=== PATIENT | female | born 1940 | race Caucasian/White ===

== ENCOUNTER → 2016-07-30 | Outpatient (CLI) | payer OTHER ==
[~2016-07-30] MED LIST: BIOT1CAP8 PO; BRIM0.15 OPB; CALC1TAB62 PO; CALC8.5C; CHOL100040; CIPR-255 PO; DORZ1SOL OPB; IBUP-1277 PO; LATA0.009 OPB
--- NOTE | 2016-07-30 14:32 | MAMMOGRAPHY REPORT ---
BILATERAL DIGITAL SCREENING MAMMOGRAM WITH CAD: 07/30/2016 CLINICAL HISTORY: Routine screening. Patient has no complaints. TECHNIQUE: Current study was also evaluated with a Computer Aided Detection (CAD) system. Bilatera l CC and MLO views were obtained. COMPARISON: Comparison is made to exams dated: 07/25/2015 mammogram, 07/19/2014 mammogram, 07/18/2013 ma mmogram, 07/17/2012 mammogram, and 01/20/2012 mammogram - [facility]. BREAST COMPOSITION: There are scattered areas of fibroglandular density in both breasts. FINDINGS: No suspicious masses, calcifications, or areas of architectural distortion are noted in e ither breast. There has been no significant interval change compared to prior exams. IMPRESSION: ACR BI-RADS CATEGORY 1: NEGATIVE There is no mammographic evidence of malignancy. A 1 year screening mammogram is recommended. The p atient will receive written notification of the results. Approximately 10% of breast cancers are not detected with mammography. A negative mammographic repor t should not delay biopsy if a clinically suggestive mass is present. Marta Robles M.D. ah/:07/30/2016 12:05:49 Crtts: aBrbara Hernandez RT(R)(M), [facility] letter sent: Normal 1/2 BI-RADS Code: ACR BI-RADS Category 1: Negative
== END | disposition home or self-care (01) ==
LOC: C.MAMM 09:48
PROVIDERS: ATTEND Internal Medicine Geriatric Medicine
DX: Z12.31 Encounter for screening mammogram for malignant neoplasm of breast (principal)

== ENCOUNTER → 2016-09-27 | Day surgery (SDC) | payer OTHER ==
[~2016-09-27] VITALS: Ht 154.9 cm; Wt 72.7 kg
[~2016-09-27] MED LIST changes: -CHOL100040; -CIPR-255 PO; -IBUP-1277 PO; +LIDOCAINE HCL 2% 2 ML VIAL (20MG/ML) ONE; +PROPOFOL IV EMULSION 10 MG/ML 20 ML VIAL IV ONE
[2016-09-27 09:55] VITALS: Ht 154.9 cm; Wt 72.7 kg
--- NOTE | 2016-09-27 10:05 | Endo History and Physical ---
History & Physical Date of Service: September 27, 2016. Chief Complaint: SCREENING FOR COLON CANCER Referring Physician: DR CHARLOTTE SAMPSON History of Present Illness 76 yo CF who presents for screening colonoscopy. Past Surgical History Hx Cardiac Surgery: No Hx Internal Defibrillator: No Hx Pacemaker: No Hx Abdominal Surgery: Yes (OVARIAN CYST REMOVAL, RAFAT, CARMEN) Hx of Implantable Prosthesis: No Hx Post-Op Nausea and Vomiting: No Hx Cancer Surgery: No Hx Thoracic Surgery: No Hx Orthopedic: Yes Hx Urinary Tract Surgery: Yes (CYSTOCELE/RECTOCELE REPAIR) Family History None Social History Smoking Status: Never Smoker Hx Substance Use: No Hx Alcohol Use: No Allergies Coded Allergies: Simvastatin (Verified Allergy, Severe, LEG CRAMPS, 09/27/16) Uncoded Allergies: DARVOCET (Allergy, Unknown, SICK IN STOMACH/DIZZY, 09/20/16) Current Medications Reported Home Medications Medications Dose Route/Sig Max Daily Dose Days Date Category Biotin 1 Mg Cap 1 Cap PO Q2D 09/20/16 Reported Calcium (Calcium & Phosphorus W/ Vitami) 1 Tab Tab 2,000 Mg PO QAM 09/20/16 Reported Viactiv (Calcium W/ Vitamins D & K) 1 Chw Chw 1 QAM 08/09/13 Reported Xalatan 0.005% Oph (Latanoprost) Soln 1 Drop OPB QPM 08/09/13 Reported Trusopt Oph (Dorzolamide HCl) Soln 1 Drop OPB BID 08/09/13 Reported Alphagan P Oph (Brimonidine Tartrate) 0.15 % Eli 1 Drop OPB BID 08/09/13 Reported Vital Signs Weight (Kilograms): 72.73 Height (Feet): 5 Height (Inches): 1 Date Time Temp Pulse Resp B/P Pulse Ox O2 Delivery O2 Flow Rate FiO2 09/27/16 09:54 36.5 82 16 148/85 98 Room Air Physical Exam General Appearance: WD/WN, no apparent distress Respiratory/Chest: Auscultation: breath sounds normal Cardiovascular: Heart Auscultation: RRR Abdomen: Bowel Sounds: normal Inspection & Palpation: soft, non-distended, no tenderness, guarding & rebound Assessment and Plan Assessment: 76 yo CF who presents for screening colonoscopy. Plan: Proceed with colonoscopy.
--- NOTE | 2016-09-27 11:03 | Discharge Instructions ---
Endoscopy Patient Instructions Date / Procedure(s) Performed September 27, 2016. Colonoscopy Allergy Information Coded Allergies: Simvastatin (Verified Allergy, Severe, LEG CRAMPS, 09/27/16) Uncoded Allergies: DARVOCET (Allergy, Unknown, SICK IN STOMACH/DIZZY, 09/20/16) Discharge Date / Findings September 27, 2016. Diverticulosis Internal hemorrhoids Medication Instructions OK to resume all medications today as prescribed Reported Home Medications Medications Dose Route/Sig Max Daily Dose Days Date Category Biotin 1 Mg Cap 1 Cap PO Q2D 09/20/16 Reported Calcium (Calcium & Phosphorus W/ Vitami) 1 Tab Tab 2,000 Mg PO QAM 09/20/16 Reported Viactiv (Calcium W/ Vitamins D & K) 1 Chw Chw 1 QAM 08/09/13 Reported Xalatan 0.005% Oph (Latanoprost) Soln 1 Drop OPB QPM 08/09/13 Reported Trusopt Oph (Dorzolamide HCl) Soln 1 Drop OPB BID 08/09/13 Reported Alphagan P Oph (Brimonidine Tartrate) 0.15 % Eli 1 Drop OPB BID 08/09/13 Reported Provider Instructions Activity Restrictions - No exercising or heavy lifting for 24 hours. - Do not drink alcohol the day of the procedure. - Do not drive a car or operate machinery until the day after the procedure. - Do not make any important decisions or sign important papers in 24 hours after the procedure. Following Day: - Return to full activity which may include returning to work/school. Diet Start your diet with liquids and light foods (jello, soup, juice, toast). Then eat your usual diet if not nauseated. Treatment For Common After Affects For mild abdominal pain, bloating, or excessive gas: - Rest - Eat lightly - Lie on right side Follow-Up Information Follow-up with DR CHARLOTTE SAMPSON as scheduled Anesthesia Information What You Should Know You have had a procedure that required some medicine to reduce anxiety and discomfort. This treatment is called moderate sedation. After receiving the treatment, you may be sleepy, but you will be able to breathe on your own. The effects of the treatment may last for several hours. Follow these instructions along with Activity/Diet recommendations noted above: * Do NOT do anything where dizziness or clumsiness would be dangerous. * Rest quietly at home today, then you can be up and about tomorrow. * Have a responsible person stay with you the rest of today. * You may have had an I.V. today. If so, you may take the dressing off later today. Recommendations Call your doctor if: * Trouble breathing * Continuous vomiting for more than 24 hours * Temperature above 101 degrees * Severe abdominal pain or bloating * Pain not relieved by pain medicine ordered * There is increased drainage or redness from any incision * A large amount of rectal bleeding greater than 2-3 tablespoons. (If you had a polyp/s removed or have hemorrhoids, a small amount of blood - from the rectum is to be expected.) * You have any unanswered questions or concerns. IN THE EVENT OF A SERIOUS EMERGENCY, GO TO THE NEAREST EMERGENCY ROOM Your discharge instructions were prepared by provider Samuel Lundberg. Patient Instructions Signature Page Shweta Soni Patient (or Guardian) Signature/Date: I have read and understand the instructions given to me by my caregivers. Caregiver/RN/Doctor Signature/Date: The above-named patient and/or guardian has received patient instructions on this date. + Original Patient Signature Page (only) stays with chart. Please make copy for patient.
--- NOTE | 2016-09-27 11:03 | GI REPORT ---
Procedure Date: 09/27/2016 10:22 AM Procedure: Colonoscopy Indications: Screening for colorectal malignant neoplasm Medicines: Monitored Anesthesia Care Complications: No immediate complications. Estimated Blood Loss: Estimated blood loss: none. Procedure: Pre-Anesthesia Assessment: - Prior to the procedure, a History and Physical was performed, and patient medications and allergies were reviewed. The patient's tolerance of previous anesthesia was also reviewed. The risks and benefits of the procedure and the sedation options and risks were discussed with the patient. All questions were answered, and informed consent was obtained. Prior Anticoagulants: The patient has taken no previous anticoagulant or antiplatelet agents. ASA Grade Assessment: II - A patient with mild systemic disease. After reviewing the risks and benefits, the patient was deemed in satisfactory condition to undergo the procedure. After I obtained informed consent, the scope was passed under direct vision. Throughout the procedure, the patient's blood pressure, pulse, and oxygen saturations were monitored continuously. The On-site loaner was introduced through the anus and advanced to the terminal ileum. The colonoscopy was performed without difficulty. The patient tolerated the procedure well. The quality of the bowel preparation was good. The terminal ileum, ileocecal valve, appendiceal orifice, and rectum were photographed. Findings: Scattered small-mouthed diverticula were found in the entire colon. Non-bleeding internal hemorrhoids were found during retroflexion. The hemorrhoids were small. Impression: - Diverticulosis in the entire examined colon. - Non-bleeding internal hemorrhoids. - No specimens collected. Recommendation: - Resume previous diet. - Continue present medications. - No repeat colonoscopy due to age and the absence of advanced adenomas. - Return to primary care physician as previously scheduled. Samuel Lundberg, 09/27/2016 11:02:16 AM This report has been signed electronically. Note Initiated On: 09/27/2016 10:22 AM I attest to the content of the Intraoperative Record and orders documented therein, exceptions below
--- NOTE | 2016-09-27 11:18 | Anesthesiology Progress Note ---
Anesthesia Post Op Note Date & Time September 27, 2016 at 11:18 Vital Signs Pain Intensity: 0 Vital Signs Past 12 Hours Date Time Temp Pulse Resp B/P Pulse Ox O2 Delivery O2 Flow Rate FiO2 09/27/16 11:08 67 18 101/68 96 Room Air 09/27/16 10:59 74 16 99/60 97 Room Air 09/27/16 09:54 36.5 82 16 148/85 98 Room Air Notes Mental Status: alert / awake / arousable, participated in evaluation Pt Amnestic to Procedure: Yes Nausea / Vomiting: adequately controlled Pain: adequately controlled Airway Patency, RR, SpO2: stable & adequate BP & HR: stable & adequate Hydration State: stable & adequate Anesthetic Complications: no major complications apparent Pt doing well.
[2016-09-27 11:31] VITALS: BP 121/65; PULSE 65; O2SAT 95
== END | disposition home or self-care (01) ==
LOC: C.GI 09:34
PROVIDERS: ATTEND Internal Medicine
DX: Z12.11 Encounter for screening for malignant neoplasm of colon (principal); K57.30 Diverticulosis of large intestine without perforation or abscess without bleeding; K64.8 Other hemorrhoids; Z79.899 Other long term (current) drug therapy

== ENCOUNTER → 2017-01-18 | Outpatient (CLI) | payer OTHER ==
[~2017-01-18] MED LIST changes: -LIDOCAINE HCL 2% 2 ML VIAL (20MG/ML) ONE; -PROPOFOL IV EMULSION 10 MG/ML 20 ML VIAL IV ONE
[2017-01-18 16:55] LABS: HEMATOCRIT 41.8 % (37-47); MEAN CELL VOLUME 86.7 fL (80-100); MEAN CORPUSCULAR HEMOGLOBIN 28.2 pg (25-34); MEAN CORPUSCULAR HGB CONC 32.5 g/dl (32-36); MEAN PLATELET VOLUME 10.4 fL (7.4-10.4); PLATELET COUNT 229 K/uL (130-400); RED BLOOD COUNT 4.82 M/uL (4.2-5.4); WHITE BLOOD COUNT 4.74 K/uL (4.8-10.8)
[2017-01-18 17:18] LABS: ALT/SGPT 22 U/L (12-78); BLOOD UREA NITROGEN 17 mg/dl (7-18); BUN/CREATININE RATIO 17.3 (10-20); CALCIUM 9.8 mg/dl (8.5-10.1); CARBON DIOXIDE 30 mmol/L (21-32); CHLORIDE 107 mmol/L (98-107); CHOLESTEROL 204 mg/dl (0-200); GLUCOSE 78 mg/dl (70-99); POTASSIUM 3.9 mmol/L (3.5-5.1); SODIUM 142 mmol/L (136-145); TRIGLYCERIDES 200 mg/dl (0-150); VERY LOW DENSITY LIPOPROT CALC 40 mg/dl
[2017-01-18 17:28] LABS: ALB/GLOB RATIO 1.1 (0.9-2); ALKALINE PHOSPHATASE 54 U/L (45-117); AST/SGOT 19 U/L (15-37); CHOLESTEROL/HDL RATIO 4.2; HDL CHOLESTEROL 49 mg/dl; LDL CHOLESTEROL CALCULATED 115 mg/dl
[2017-01-18 17:38] LABS: BASO ABS # 0.04 K/uL (0-0.2); BASOPHIL % 0.9 %; COMPLETE YES; EOSINOPHIL % 3.5 %; LYMPH ABS # 1.48 K/uL (1.2-3.4); LYMPHOCYTE % 31.3 %; NEUTROPHILS % 38.3 %; VARIANT LYM ABS # 1.15 K/uL; VARIANT LYMPHOCYTE % 24.3 %
[2017-01-19 06:03] LABS: ESTIMATED AVERAGE GLUCOSE 123 mg/dl; HA1C FLAG Normal (Normal)
== END | disposition home or self-care (01) ==
LOC: C.LABBC 13:32
PROVIDERS: ATTEND Internal Medicine Geriatric Medicine
DX: E78.5 Hyperlipidemia, unspecified (principal); R73.9 Hyperglycemia, unspecified; E55.9 Vitamin D deficiency, unspecified; R51 Headache; M48.00 Spinal stenosis, site unspecified; G62.9 Polyneuropathy, unspecified

== ENCOUNTER 2017-04-29 05:18 | Inpatient (IN) | payer OTHER ==
--- NOTE | 2017-04-18 12:02 | HISTORY & PHYSICAL EXAMINATION ---
DATE OF ADMISSION: 04/29/2017 CHIEF COMPLAINT: Mass protruding from the vagina on coughing or sneezing. HISTORY OF PRESENT ILLNESS: The patient is a 76-year-old 4, para 4. She has previously undergone a vaginal hysterectomy with a bladder repair in 1989, she underwent an ovarian cystectomy in 1977 and in 2013, she underwent a cystocele repair with a suprapubic cysto catheter. Presently, the bladder is well supported. She has no trouble with stress incontinence; however, she has had a mass protruding from her vagina on coughing or sneezing and she has a second to third degree rectocele presently being scheduled for a posterior colporrhaphy. PAST MEDICAL HISTORY: She has 4 children in good health. ALLERGIES: No drug. PAST SURGICAL HISTORY: Status post vaginal hysterectomy, status post ovarian cystectomy, status post gallbladder removal, status post anterior colporrhaphy. SOCIAL HISTORY: No smoking. No alcohol intake. Worked with her in his construction business. FAMILY HISTORY: Mother at age 72, heart disease. Father at age 89, lung cancer. She had 5 sisters, 2 brothers, 1 sister of kidney cancer. REVIEW OF SYSTEMS: HEAD: No symptoms of frequent or severe headaches. EYES: No symptoms of blurred vision or double vision. EARS: No symptoms of frequent ear infections, difficulty hearing. PHYSICAL EXAMINATION: GENERAL: Well-developed, well-nourished 76-year-old white female, alert, oriented x3 and cooperative in no acute distress, appears stated age. EYES: Conjunctivae are pink, sclerae white, no evidence of jaundice. EARS: Had normal light reflex bilaterally. NOSE: Had normal mucosa. Septum is midline. There were no polyps. THROAT: No erythema or evidence of infection. Teeth are in good state of repair. HEAD: Normocephalic, normal distribution of hair. NECK: Supple. Trachea midline. Thyroid is not enlarged. There is no adenopathy appreciated. Both carotids are of good intensity. CHEST: Clear to auscultation and percussion. No wheezes, rales or rhonchi appreciated. HEART: Had regular rhythm. S1 and S2 are normal. BREASTS: Normal. ABDOMEN: Soft and nontender. PELVIC: Revealed a mass protruding from the vagina on coughing or sneezing. Good support of the bladder neck, but a second to third degree rectocele. Rectovaginal examination revealed a fascial defect posteriorly. MUSCULOSKELETAL: Revealed no calf tenderness. IMPRESSIONS OF THIS CASE: Status post cholecystectomy, status post ovarian cystectomy, status post vaginal hysterectomy, status post anterior colporrhaphy, symptomatic rectocele. LISAD
--- NOTE | 2017-04-26 09:40 | PAT Medication Instructions ---
Service Date Apr 26, 2017. Current Home Medication List Atorvastatin (Lipitor), 10 MG PO QAM Biotin (Biotin), 1 CAP PO Q2D Brimonidine Tartrate Oph (Alphagan P Oph), 1 DROP OPB BID Calcium & Phosphorus W/ Vitami (Calcium), 2,000 MG PO QAM Calcium Carbonate (Tums), 1 TAB PEG PRN Calcium W/ Vitamins D & K (Viactiv), 1 TAB PO QAM Dorzolamide Hcl (Trusopt Oph), 1 DROPS OP BID Ibuprofen Tab (Advil), 200 MG PO PRN Latanoprost (Xalatan 0.005% Oph Eli), 1 DROPS OP HS Medication Instructions For Your Scheduled Surgery - Hold the following medications the morning of surgery: Calcium W/ Vitamins D & K (Viactiv), 1 TAB PO QAM Calcium & Phosphorus W/ Vitami (Calcium), 2,000 MG PO QAM Calcium Carbonate (Tums), 1 TAB PO PRN Ibuprofen Tab (Advil), 200 MG PO PRN (otherwise okay to continue per surgeon) Biotin (Biotin), 1 CAP PO Q2D - Take the following medications the morning of surgery with a sip of water OTHERWISE NOTHING TO EAT OR DRINK AFTER MIDNIGHT: Atorvastatin (Lipitor), 10 MG PO QAM Dorzolamide Hcl (Trusopt Oph), 1 DROPS OP BID Brimonidine Tartrate Oph (Alphagan P Oph), 1 DROP OPB BID - Take the following medications as scheduled the night before surgery: Latanoprost (Xalatan 0.005% Oph Eli), 1 DROPS OP HS Dorzolamide Hcl (Trusopt Oph), 1 DROPS OP BID Brimonidine Tartrate Oph (Alphagan P Oph), 1 DROP OPB BID If you have any questions please call us at [phone] or [phone] or [phone]
[2017-04-26 10:06] LABS: HEMATOCRIT 39.1 % (37-47); MEAN CELL VOLUME 84.3 fL (80-100); MEAN CORPUSCULAR HEMOGLOBIN 28.4 pg (25-34); MEAN CORPUSCULAR HGB CONC 33.8 g/dl (32-36); MEAN PLATELET VOLUME 9.7 fL (7.4-10.4); PLATELET COUNT 203 K/uL (130-400); RED BLOOD COUNT 4.64 M/uL (4.2-5.4); WHITE BLOOD COUNT 4.95 K/uL (4.8-10.8)
--- NOTE | 2017-04-26 10:08 | DIAGNOSTIC IMAGING REPORT ---
CHEST 2 VIEWS ROUTINE CLINICAL HISTORY: Preoperative chest COMPARISON STUDY: 09/28/2013 FINDINGS: The cardiac and mediastinal contours are normal. There is no evidence of focal pulmonary consolidation. There is no evidence of failure. No pleural effusions are visualized.[ There are minimal left basilar atelectatic changes. IMPRESSION: No active disease in the chest. Electronically signed by: Kiran Hall M.D. 04/26/2017 10:06 AM Dictated Date/Time: 04/26/2017 10:06 AM
[2017-04-26 10:13] LABS: PROTHROMBIN TIME (PATIENT) 10.5 SECONDS (9.0-12.0)
[2017-04-26 11:02] LABS: COMPLETE YES; EOSINOPHIL % 3.5 %; LYMPH ABS # 1.67 K/uL (1.2-3.4); LYMPHOCYTE % 33.7 %; NEUTROPHILS % 29.2 %; VARIANT LYM ABS # 1.36 K/uL; VARIANT LYMPHOCYTE % 27.4 %
[2017-04-26 11:27] LABS: BUN/CREATININE RATIO 21.6 (10-20); CALCIUM 9.4 mg/dl (8.5-10.1); CREATININE 0.87 mg/dl (0.60-1.20); POTASSIUM 4.3 mmol/L (3.5-5.1)
[~2017-04-29] VITALS: Ht 154.9 cm; Wt 71.6 kg
[2017-04-29] VITALS (17 sets, daily range): BP systolic 93–141; BP diastolic 51–76; PULSE 68–93; TEMP 36.4–37.2; O2SAT 93–99; Ht 154.9 cm; Wt 71.6 kg
[~2017-04-29 05:18] MED LIST changes: +ATOR10TA82 PO; +CALC500C3 PEG; -CALC8.5C; +CALC8.5C PO; -DORZ1SOL OPB; +DORZ2SOL17 OP; +IBUP-103 PO; +LATA0.009 OP; -LATA0.009 OPB
[2017-04-29] MEDS ORDERED: CALC500C3 PO (05:47)
[2017-04-29] MEDS ORDERED: CEFOXITIN IV 2,000 MG in SYRINGE 11 ML IV SCH (06:00)
[2017-04-29] MEDS ORDERED: CEFOXITIN IV 2,000 MG in DEXTROSE 5% 50ML 50 ML IV SCH (06:00)
[2017-04-29] MEDS ORDERED: LACTATED RINGER'S 1000ML 1,000 ML IV SCH ×2 (06:00)
[2017-04-29] MEDS ORDERED: MIDAZOLAM HCL 1 MG/ML 2ML VIAL ONE (06:44)
[2017-04-29] MEDS ORDERED: FENTANYL CITRATE INJ 50 MCG/1 ML 2 ML VIAL ONE (06:44)
[2017-04-29] MEDS ORDERED: LIDOCAINE/EPINEPHRINE 1% 20 ML VIAL ONE (07:04)
[2017-04-29] MEDS ORDERED: SULFANILAMIDE 15% CR 120 GM TUBE ONE (07:04)
--- NOTE | 2017-04-29 07:09 | History & Physical Bridge Note ---
H&P Re-Evaluation Bridge Note: I have examined the patient, reviewed the History & Physical and in the interval since the performance of the History & Physical I have noted the following changes of clinical significance: No changes noted
[2017-04-29] MEDS ORDERED: MORPHINE SULFATE 1MG/1ML 30ML VIAL IV ONE (07:15)
[2017-04-29] MEDS ORDERED: BUPIVACAINE 0.5 % 5 MG/1 ML PF 10ML VIAL ONE (07:16)
[2017-04-29] MEDS ORDERED: LACTATED RINGER'S 1000ML 500 ML IV PRN (08:06)
[2017-04-29] MEDS ORDERED: NALOXONE HCL INJ 1 MG in SODIUM CHLORIDE 0.9% 1000ML 1,000 ML IV PRN (08:06)
[2017-04-29] MEDS ORDERED: SODIUM CHLORIDE 0.9% 1000ML 1,000 ML IV PRN (08:06)
[2017-04-29] MEDS ORDERED: NALOXONE HCL INJ 0.08 MG in SYRINGE 1.8 ML IV PRN (08:06)
[2017-04-29] MEDS ORDERED: ONDANSETRON INJ 2 MG/ML 2 ML VIAL ONE (08:10)
[2017-04-29] MEDS ORDERED: LIDOCAINE HCL 2% 2 ML VIAL (20MG/ML) ONE (08:10)
[2017-04-29] MEDS ORDERED: PROPOFOL IV EMULSION 10 MG/ML 20 ML VIAL IV ONE (08:10)
[2017-04-29] MEDS ORDERED: MoRPHine SULFATE PF 1 MG/ML 10 ML AMP/VIAL EPI PRN (08:15)
[2017-04-29] MEDS ORDERED: KETOROLAC TROMETHAMINE 15 MG/ML VIAL IV. PRN (08:15)
[2017-04-29] MEDS ORDERED: ONDANSETRON INJ 2 MG/ML 2 ML VIAL IV PRN (08:15)
[2017-04-29] MEDS ORDERED: NALOXONE HCL 0.4 MG/1 ML VIAL/CARP IV PRN (08:15)
[2017-04-29] MEDS ORDERED: NO NARCOTICS OR SEDATIVES SCH (08:15)
[2017-04-29] MEDS ORDERED: EpHEDrine SULFATE INJ 50 MG/ML AMP IV PRN (08:15)
[2017-04-29] MEDS ORDERED: NALBUPHINE HCL INJ 10 MG/ML AMP IV PRN (08:15)
[2017-04-29] MEDS ORDERED: MoRPHine SULFATE 2 MG/ML CARP IV PRN (08:15)
[2017-04-29] MEDS ORDERED: DiphenhydrAMINE HCL 50 MG/ML VIAL IV PRN (08:15)
[2017-04-29] MEDS ORDERED: SENNA 8.6 MG TAB PO PRN (09:15)
[2017-04-29] MEDS ORDERED: BISACODYL 10 MG SUPP PR PRN (09:15)
[2017-04-29] MEDS ORDERED: MAGNESIUM HYDROXIDE SUSP 30 ML UDC PO PRN (09:15)
--- NOTE | 2017-04-29 09:15 | [facility] Post Operative Brief Note ---
Immediate Operative Summary Operative Date Apr 29, 2017. Pre-Operative Diagnosis Rectocele Post-Operative Diagnosis Rectocele Procedure(s) Performed Posterior Colporrhaphy Surgeon Rosaura Respiratory Therapy Instructor Surgeon(s) none Estimated Blood Loss 50cc Findings third degree rectocele Specimens A: Posterior Vaginal Mucosa Complication(s) None Disposition Recovery Room / PACU
--- NOTE | 2017-04-29 09:25 | OPERATIVE REPORT ---
DATE OF OPERATION: 04/29/2017 INDICATIONS FOR SURGERY: Mass protruding from the vagina on coughing or sneezing. PREOPERATIVE DIAGNOSIS: Symptomatic rectocele. POSTOPERATIVE DIAGNOSIS: Third degree rectocele. PROCEDURE: Posterior colporrhaphy. SURGEON: Dr. Kaplan. ESTIMATED BLOOD LOSS: 50 mL. ANESTHESIA: Spinal sedation. OPERATIVE FINDINGS AND PROCEDURE: The patient was brought to the OR table, correctly identified by armband and conversation. Spinal anesthesia was administered. She was positioned in the candy cane stirrups on the operating room table. Then, the vagina was painted with Betadine paint along with the perineum and part of the thigh. The patient was draped in usual sterile fashion. Mcleod catheter was used to empty the bladder. Careful pelvic exam revealed a large rectocele and this was repaired by infiltrating the peritoneum and posterior vagina with local with epinephrine and then excised a wedge-shaped portion of the perineum and then dissecting the posterior vaginal mucosa off the rectum up to the vaginal cuff, then excising the excess vaginal mucosa, then palpating the levator ani muscles palpating the sacral notch on each side and then using interrupted [id number] sutures of heavy Vicryl to approximate the levator ani muscles applied by the cuff and then I used about 3 additional [id number] sutures of Vicryl to approximate the levator ani muscles out to the perineum. I checked for the integrity of the repair. I had good fascial tissue. Good support all the way up to the cuff. I then approximated the vaginal mucosa with a continuous interlocking suture of Vicryl right down to the vaginal introitus. I left the top suture of Vicryl of the rectovaginal septum long so it would hang out of the perineum as a suture drain. After approximating the vaginal mucosa I approximated the bulbocavernosus muscles with 2 interrupted deep sutures to approximate the perineal body and then a running subcuticular suture of 2-0 Vicryl to approximate the perineal skin edges. Following this, a good vaginal width would not quite accept 2 fingers but was close. I then inserted a Mcleod catheter. Urine was clear. I used iodoform packing with sulfur cream packed the cuff. I used about 2/3 of the bottle of 1 inch packing. Following this, I did a rectal exam. There were no sutures through the rectum and hemostasis was good. The patient tolerated the procedure well and left the OR in good condition. I attest to the content of the Intraoperative Record and any orders documented therein. Any exception s are noted below.
[2017-04-29] MEDS: D5W AND LACTATED RINGERS 1,000 ML IV SCH ×2 (12:50→23:16)
--- NOTE | 2017-04-29 13:50 | Anesthesiology Progress Note ---
Anesthesia Post Op Note Date & Time Apr 29, 2017 at 13:50 Vital Signs Pain Intensity: 0 Vital Signs Past 12 Hours Date Time Temp Pulse Resp B/P (MAP) Pulse Ox O2 Delivery O2 Flow Rate FiO2 04/29/17 10:40 62 14 111/66 100 Nasal Cannula 2 04/29/17 10:30 37.4 63 15 115/65 100 Nasal Cannula 2 04/29/17 10:20 72 14 113/59 100 Nasal Cannula 2 04/29/17 10:10 63 13 114/65 100 Nasal Cannula 2 04/29/17 10:00 65 12 121/64 100 Nasal Cannula 2 04/29/17 09:50 60 13 108/69 100 Nasal Cannula 2 04/29/17 09:40 37.2 59 14 112/62 100 Nasal Cannula 2 04/29/17 09:30 67 12 114/65 100 Nasal Cannula 2 04/29/17 09:20 74 14 115/63 100 Nasal Cannula 2 04/29/17 09:14 36.5 70 14 103/59 100 Nasal Cannula 2 04/29/17 05:51 36.7 80 20 141/76 99 Room Air Notes Mental Status: alert / awake / arousable, participated in evaluation Pt Amnestic to Procedure: Yes Nausea / Vomiting: adequately controlled Pain: adequately controlled Airway Patency, RR, SpO2: stable & adequate BP & HR: stable & adequate Hydration State: stable & adequate Anesthetic Complications: no major complications apparent
[2017-04-29] MEDS ORDERED: NURSING VERBAL MED ORDER ONE (15:45)
[2017-04-29] MEDS: BRIMONIDINE TARTRATE 0.2% 5ML OP SCH ×2 (17:00→21:00)
[2017-04-29] MEDS: DORZOLAMIDE/TIMOLOL 22.3/6.8MG/ML 10 ML BTL OP SCH (17:00)
[2017-04-29] MEDS: IV FLUIDS COMPLETED PRN ×2 (17:15→23:16)
[2017-04-29] MEDS ORDERED: LACTATED RINGER'S 1000ML 500 ML IV ONE (18:15)
[2017-04-29] MEDS ORDERED: LATANOPROST 0.005% OP SOLN 2.5 ML BTL OP SCH (21:00)
[2017-04-29] MEDS: LATANOPROST 0.005% OP SOLN 2.5 ML BTL OP SCH (21:17)
[2017-04-29] MEDS: IBUPROFEN 600 MG TAB PO PRN (23:30)
[2017-04-30 00:45] VITALS: O2SAT 96
[2017-04-30 01:30] VITALS: O2SAT 94
[2017-04-30] MEDS ORDERED: DC INTRASPINAL MORPHINE ONE (01:30)
[2017-04-30] MEDS ORDERED: ONDANSETRON INJ 2 MG/ML 2 ML VIAL IV PRN (01:31)
[2017-04-30] MEDS ORDERED: OXYCODONE/ACETAMINOPHEN 5-325 TAB PO PRN (01:31)
[2017-04-30] MEDS ORDERED: KETOROLAC TROMETHAMINE 15 MG/ML VIAL IV. PRN (01:31)
[2017-04-30] MEDS ORDERED: MEPERIDINE HCL 50 MG/ML CARP IV PRN ×2 (01:31)
[2017-04-30 04:40] VITALS: BP 104/64; PULSE 76; TEMP 36.9; O2SAT 96
[2017-04-30] MEDS: IBUPROFEN 600 MG TAB PO PRN ×3 (07:09→19:37)
[2017-04-30] MEDS: D5W AND LACTATED RINGERS 1,000 ML IV SCH (07:25)
[2017-04-30 07:55] VITALS: BP 126/74; PULSE 77; TEMP 36.6; O2SAT 97
[2017-04-30] MEDS: DORZOLAMIDE/TIMOLOL 22.3/6.8MG/ML 10 ML BTL OP SCH ×2 (08:50→19:37)
[2017-04-30] MEDS: BRIMONIDINE TARTRATE 0.2% 5ML OP SCH ×2 (08:50→19:36)
[2017-04-30 08:59] LABS: HEMATOCRIT 34.9 % (37-47); MEAN CELL VOLUME 84.9 fL (80-100); MEAN PLATELET VOLUME 9.8 fL (7.4-10.4); PLATELET COUNT 152 K/uL (130-400); RED BLOOD COUNT 4.11 M/uL (4.2-5.4); WHITE BLOOD COUNT 6.94 K/uL (4.8-10.8)
[2017-04-30 09:51] LABS: BASO % 0.1 %; BASO ABS # 0.01 K/uL (0-0.2); COMPLETE YES; EOS % 0.9 %; IG% 0.1 %; LYMPH % 29.5 %; LYMPH ABS # 2.05 K/uL (1.2-3.4); MONO % 7.8 %; NEUT % 61.6 %
--- NOTE | 2017-04-30 11:06 | Progress Note ---
Subjective Apr 30, 2017. Subjective conversation w/ patient Ambulation: limited ambulation Voiding: rivas catheter in place Passing Gas: Yes Diet Tolerance: Regular Diet Lochia: Small Review of Systems Constitutional: + fever Objective Vital Signs Date Time Temp Pulse Resp B/P (MAP) Pulse Ox O2 Delivery O2 Flow Rate FiO2 04/30/17 07:55 36.6 77 18 126/74 (91) 97 Room Air 04/30/17 07:55 97 Room Air 04/30/17 04:40 36.9 76 18 104/64 (77) 96 Room Air 04/30/17 01:30 18 94 04/30/17 00:45 18 96 04/29/17 23:30 37.2 93 18 115/65 (82) 96 Room Air 04/29/17 23:30 18 96 04/29/17 23:30 96 Room Air 04/29/17 22:00 18 94 04/29/17 21:15 18 94 04/29/17 20:20 18 93 04/29/17 19:10 36.9 92 18 93/51 (65) 94 Room Air 04/29/17 19:10 18 94 04/29/17 19:00 18 95 04/29/17 18:00 18 96 04/29/17 17:00 18 95 04/29/17 16:45 95 Room Air 04/29/17 16:45 36.9 90 18 123/68 (86) 95 Room Air 04/29/17 16:00 18 95 04/29/17 15:00 18 96 04/29/17 14:00 89 18 116/67 (83) 96 Room Air 04/29/17 14:00 18 96 04/29/17 13:00 83 18 105/54 (71) 96 Room Air 04/29/17 13:00 18 96 04/29/17 12:00 18 95 04/29/17 12:00 36.6 78 18 108/67 (81) 95 Room Air 04/29/17 11:30 72 18 110/55 (73) 97 Room Air Physical Exam General Appearance: WELL-APPEARING Respiratory/Chest: lungs clear Abdomen: normal bowel sounds, non tender Extremities: no pedal edema, no calf tenderness Laboratory Results Last 24 Hours Test 04/30/17 08:36 White Blood Count 6.94 K/uL Red Blood Count 4.11 M/uL Hemoglobin 11.5 g/dL Hematocrit 34.9 % Mean Corpuscular Volume 84.9 fL Mean Corpuscular Hemoglobin 28.0 pg Mean Corpuscular Hemoglobin Concent 33.0 g/dl Platelet Count 152 K/uL Mean Platelet Volume 9.8 fL Neutrophils (%) (Auto) 61.6 % Lymphocytes (%) (Auto) 29.5 % Monocytes (%) (Auto) 7.8 % Eosinophils (%) (Auto) 0.9 % Basophils (%) (Auto) 0.1 % Neutrophils # (Auto) 4.27 K/uL Lymphocytes # (Auto) 2.05 K/uL Monocytes # (Auto) 0.54 K/uL Eosinophils # (Auto) 0.06 K/uL Basophils # (Auto) 0.01 K/uL RDW Standard Deviation 41.2 fL RDW Coefficient of Variation 13.3 % Immature Granulocyte % (Auto) 0.1 % Immature Granulocyte # (Auto) 0.01 K/uL Assessment and Plan Post-Op Day#: 1 Continue Routine Care: vaginal packing in place
[2017-04-30 11:50] VITALS: BP 98/54; PULSE 74; TEMP 36.6; O2SAT 95
[2017-04-30 16:00] VITALS: BP 124/66; PULSE 81; TEMP 36.8; O2SAT 94
[2017-05-01] VITALS: BP 107/57; PULSE 73; TEMP 36.6; O2SAT 95
[2017-05-01] MEDS: LATANOPROST 0.005% OP SOLN 2.5 ML BTL OP SCH (00:13)
[2017-05-01] MEDS: IBUPROFEN 600 MG TAB PO PRN ×2 (04:04→09:21)
[2017-05-01] MEDS ORDERED: NURSING VERBAL MED ORDER ONE (07:15)
[2017-05-01 07:55] VITALS: BP 132/75; PULSE 76; TEMP 36.6; O2SAT 96
[2017-05-01 08:08] LABS: BASO % 0.3 %; BASO ABS # 0.02 K/uL (0-0.2); COMPLETE YES; HEMATOCRIT 35.7 % (37-47); IG% 0.1 %; LYMPH ABS # 2.42 K/uL (1.2-3.4); MEAN CELL VOLUME 85.2 fL (80-100); MEAN CORPUSCULAR HEMOGLOBIN 28.4 pg (25-34); MEAN CORPUSCULAR HGB CONC 33.3 g/dl (32-36); MONO % 6.8 %; NEUT % 57.8 %; PLATELET COUNT 164 K/uL (130-400); RED BLOOD COUNT 4.19 M/uL (4.2-5.4); WHITE BLOOD COUNT 7.33 K/uL (4.8-10.8)
[2017-05-01] MEDS: DORZOLAMIDE/TIMOLOL 22.3/6.8MG/ML 10 ML BTL OP SCH (08:42)
[2017-05-01] MEDS: BRIMONIDINE TARTRATE 0.2% 5ML OP SCH (08:42)
--- NOTE | 2017-05-01 10:51 | Progress Note ---
Subjective May 01, 2017. Subjective conversation w/ patient Ambulation: limited ambulation Voiding: rivas catheter in place Diet Tolerance: Regular Diet Lochia: Small Review of Systems Constitutional: + fever Objective Vital Signs Date Time Temp Pulse Resp B/P (MAP) Pulse Ox O2 Delivery O2 Flow Rate FiO2 05/01/17 07:55 96 Room Air 05/01/17 07:55 36.6 76 18 132/75 (94) 96 Room Air 05/01/17 00:00 Room Air 05/01/17 00:00 36.6 73 16 107/57 (74) 95 Room Air 04/30/17 16:00 94 Room Air 04/30/17 16:00 36.8 81 18 124/66 (85) 94 Room Air 04/30/17 11:50 36.6 74 18 98/54 (69) 95 Room Air Physical Exam General Appearance: WELL-APPEARING Abdomen: normal bowel sounds, non tender Extremities: no pedal edema, no calf tenderness Laboratory Results Last 24 Hours Test 05/01/17 07:30 White Blood Count 7.33 K/uL Red Blood Count 4.19 M/uL Hemoglobin 11.9 g/dL Hematocrit 35.7 % Mean Corpuscular Volume 85.2 fL Mean Corpuscular Hemoglobin 28.4 pg Mean Corpuscular Hemoglobin Concent 33.3 g/dl Platelet Count 164 K/uL Mean Platelet Volume 10.0 fL Neutrophils (%) (Auto) 57.8 % Lymphocytes (%) (Auto) 33.0 % Monocytes (%) (Auto) 6.8 % Eosinophils (%) (Auto) 2.0 % Basophils (%) (Auto) 0.3 % Neutrophils # (Auto) 4.23 K/uL Lymphocytes # (Auto) 2.42 K/uL Monocytes # (Auto) 0.50 K/uL Eosinophils # (Auto) 0.15 K/uL Basophils # (Auto) 0.02 K/uL RDW Standard Deviation 42.4 fL RDW Coefficient of Variation 13.7 % Immature Granulocyte % (Auto) 0.1 % Immature Granulocyte # (Auto) 0.01 K/uL Assessment and Plan Post-Op Day#: 2 Continue Routine Care: vaginal packing and rivas catheter removed
--- NOTE | 2017-05-01 10:53 | Discharge Instructions ---
Discharge Instructions Date of Service May 01, 2017. Admission Reason for Admission: 3RD Degree Rectocele Discharge Discharge Diagnosis / Problem: symptomatic rectocele Discharge Goals Goal(s): Routine recovery after surgery Activity Recommendations Activity Limitations: as noted below ACTIVITY RECOMMENDATIONS: * Gradual return to full activity over next 2-3 weeks. * No heavy lifting over next 2-3 weeks. * Nothing in the vagina (no intercourse, tampons, or douching) for 6 weeks * You may walk up and down steps as necessary. * You may drive a car in 2 weeks. * Hot shower or tub bath daily. SPECIAL CARE INSTRUCTIONS: * Check temperature twice daily for one week. Report any elevation over 100.4 degrees Fahrenheit (38.0 degrees Celsius). * Call your doctor if bleeding becomes heavier than the heaviest part of your period - saturating a sanitary pad within an hour. * If you develop a red, hard, warm swollen lump on your incision or if you develop any separation of or drainage from your incision, notify your doctor. . Current Hospital Diet ACTIVITY RECOMMENDATIONS: * Gradual return to full activity over next 2-3 weeks. * No heavy lifting over next 2-3 weeks. * Nothing in the vagina (no intercourse, tampons, or douching) for 6 weeks * You may walk up and down steps as necessary. * You may drive a car in 2 weeks. * Hot shower or tub bath daily. SPECIAL CARE INSTRUCTIONS: * Check temperature twice daily for one week. Report any elevation over 100.4 degrees Fahrenheit (38.0 degrees Celsius). * Call your doctor if bleeding becomes heavier than the heaviest part of your period - saturating a sanitary pad within an hour. * If you develop a red, hard, warm swollen lump on your incision or if you develop any separation of or drainage from your incision, notify your doctor. Patient's current hospital diet: Regular Diet Discharge Diet Recommended Diet: Regular Diet Procedures Procedures Performed: Posterior Colporrhaphy Pending Studies Studies pending at discharge: no Medical Emergencies . Who to Call and When: Medical Emergencies: If at any time you feel your situation is an emergency, please call 911 immediately. . Non-Emergent Contact Non-Emergency issues call your: Film Sound Coordinator Call Non-Emergent contact if: temperature is above 100.5 . . "Provider Documentation" section prepared by Raul Kaplan. . VTE Core Measure Inpt VTE Proph given/why not?: Treatment not indicated
--- NOTE | 2017-05-01 11:14 | DISCHARGE SUMMARY ---
INDICATIONS FOR SURGERY: Symptomatic rectocele mass protruding from the vagina, coughing or sneezing. PREOPERATIVE DIAGNOSIS: Symptomatic rectocele. HOSPITAL COURSE: The patient was admitted to the hospital. On the day of admission, she received prophylactic antibiotics and was taken to the OR where she underwent a posterior colporrhaphy. She also had insertion of a Mcleod catheter and vaginal packing. Her preoperative hemoglobin was 13.2, hematocrit 39.1. Postoperatively, hemoglobin was 11.9, hematocrit 35.7. The patient had the procedure done under spinal anesthesia with sedation. The procedure went well with minimal bleeding. Postop course was uneventful. Her bowel sounds returned promptly. She was eating. On the next day, she remained afebrile and the packing however was left in for the standard 2 days. On the second postoperative day, the packing was removed. Mcleod catheter was removed and the patient had prescriptions for Percocet and Motrin for pain control and was told to call the hospital if she had a temperature of over 100 or any heavy bleeding and also to return for a 6 weeks' visit.
== END 2017-05-01 15:30 | disposition home or self-care (01) | DRG 748 ==
LOC: C.ACU 05:18 → C.MS4N 06:00 → ENRESERV 11:42 → OBSVTOIN 04-30 11:13
PROVIDERS: ADMIT Obstetrics & Gynecology; ATTEND Obstetrics & Gynecology
PROC: 0JQC0ZZ Repair Pelvic Region Subcutaneous Tissue and Fascia, Open Approach (ICD-10-PCS; principal; 2017-04-29 07:15)
DX: N81.6 Rectocele (principal); M19.90 Unspecified osteoarthritis, unspecified site; H40.9 Unspecified glaucoma; E66.9 Obesity, unspecified; Z68.30 Body mass index [BMI] 30.0-30.9, adult; Z79.899 Other long term (current) drug therapy

== ENCOUNTER → 2017-05-06 | Outpatient (CLI) | payer OTHER ==
[~2017-05-06] MED LIST changes: -CALC500C3 PEG; +CALC500C3 PO; +SULF800T23 PO; +XRL15 PO
== END | disposition home or self-care (01) ==
LOC: C.LABSPEC 17:10
PROVIDERS: ATTEND Family Medicine Adult Medicine
DX: R31.9 Hematuria, unspecified (principal)

== ENCOUNTER 2017-05-13 03:49 | Inpatient (IN) | payer OTHER ==
[2017-05-13] VITALS (9 sets, daily range): BP systolic 103–146; BP diastolic 59–82; PULSE 75–86; TEMP 36.5–36.7; O2SAT 94–97; Ht 157.5 cm; Wt 69.2 kg
[~2017-05-13] VITALS: Ht 157.5 cm; Wt 69.2 kg
[~2017-05-13 03:49] MED LIST changes: +HYDROCODONE/ACETAMOPHEN 5/325MG TAB PO PRN; +MoRPHine SULFATE 2 MG/ML CARP IV PRN; -SULF800T23 PO; -XRL15 PO
[2017-05-13] MEDS ORDERED: FENTANYL CITRATE INJ 50 MCG/1 ML 2 ML VIAL IV STA (04:13)
[2017-05-13] MEDS ORDERED: SULF800T23 PO (04:17)
[2017-05-13 04:29] LABS: BASO % 0.4 %; BASO ABS # 0.03 K/uL (0-0.2); EOS % 3.2 %; EOS ABS # 0.22 K/uL (0-0.5); HEMATOCRIT 40.3 % (37-47); HEMOGLOBIN 13.7 g/dL (12.0-16.0); IG# 0.01 K/uL (0.00-0.02); LYMPH % 31.7 %; LYMPH ABS # 2.17 K/uL (1.2-3.4); MEAN CELL VOLUME 84.3 fL (80-100); MEAN CORPUSCULAR HEMOGLOBIN 28.7 pg (25-34); MEAN PLATELET VOLUME 10.3 fL (7.4-10.4); MONO ABS # 0.41 K/uL (0.11-0.59); NEUT % 58.6 %; NEUT ABS # 4.01 K/uL (1.4-6.5); PLATELET COUNT 220 K/uL (130-400); RED CELL DISTRIBUTION WIDTH CV 13.3 % (11.5-14.5); RED CELL DISTRIBUTION WIDTH SD 40.8 fL (36.4-46.3); WHITE BLOOD COUNT 6.85 K/uL (4.8-10.8)
[2017-05-13] MEDS ORDERED: OPTIRAY 320 IV PRN ×2 (04:30→06:45)
--- NOTE | 2017-05-13 04:40 | EMERGENCY ROOM VISIT NOTE ---
History Report prepared by Ruby: Luci León Under the Supervision of: Dr. Maria Del Carmen Hale M.D. First contact with patient: 04:00 Chief Complaint: CHEST PAIN Stated Complaint: CHEST PAIN History of Present Illness The patient is a 76 year old female who presents to the Emergency Room with complaints of constant chest cramping beginning a day ago. The patient's pain worsens with taking a deep breath. She denies any jaw pain, arm pain, shoulder pain, shortness of breath, or cough. The patient recent had surgery but denies being put on any blood thinners after surgery. Source of History: patient Onset: a day ago Position: chest Quality: cramping Timing: constant Modifying Factors (Worsening): breathing Associated Symptoms: No cough, No SOB Review of Systems See HPI for pertinent positives & negatives. A total of 10 systems reviewed and were otherwise negative. Past Medical & Surgical Medical Problems: (1) Bilateral pulmonary embolism (2) Glaucoma (3) Pneumonia Surgical Problems: (1) History of cholecystectomy (2) History of colonoscopy (3) History of cystocele and rectocele repair (4) History of hysterectomy (5) History of ovarian cystectomy Family History Diabetes Gallbladder disease Heart disease Kidney disease/stones Lung disease Social History Smoking Status: Never Smoker Alcohol Use: none Marital Status: Housing Status: lives with significant other Occupation Status: retired Current/Historical Medications Scheduled Atorvastatin (Lipitor), 10 MG PO QAM Biotin (Biotin), 1 CAP PO Q2D Brimonidine Tartrate Oph (Alphagan P Oph), 1 DROP OPB BID Calcium & Phosphorus W/ Vitami (Calcium), 2,000 MG PO QAM Calcium W/ Vitamins D & K (Viactiv), 1 TAB PO QAM Dorzolamide Hcl (Trusopt Oph), 1 DROPS OP BID Ibuprofen Tab (Advil), 200 MG PO PRN Latanoprost (Xalatan 0.005% Oph Eli), 1 DROPS OP HS Sulfa/Trimethoprim (Bactrim Ds 800MG/160MG), 1 TAB PO BID Scheduled PRN Calcium Carbonate (Tums), 1 TAB PO DAILY PRN for Dyspepsia Allergies Coded Allergies: Simvastatin (Verified Adverse Reaction, Intermediate, LEG CRAMPS, 04/29/17 ) Propoxyphene (Verified Adverse Reaction, Mild, sick in stomach, 12/15/17) Physical Exam Vital Signs Date Time Temp Pulse Resp B/P (MAP) Pulse Ox O2 Delivery O2 Flow Rate FiO2 05/13/17 06:00 85 19 134/60 96 Room Air 05/13/17 05:00 68 15 122/71 97 Room Air 05/13/17 04:12 97 Room Air 05/13/17 04:00 72 18 139/93 96 Room Air 05/13/17 03:59 77 05/13/17 03:55 96 Room Air 05/13/17 03:55 36.8 75 16 139/93 97 Room Air Physical Exam Vital signs reviewed. General: Well-appearing female, in no significant distress. HEENT: No scleral icterus, PERRLA, neck supple. Atraumatic. Cardiovascular: Regular rate and rhythm, no extra sounds. Pulmonary: Clear to auscultation bilaterally, normal work of breathing. Abdomen: Soft, nontender, nondistended, positive bowel sounds. Musculoskeletal: Atraumatic, no peripheral edema. Neurologic: Patient awake alert and oriented x 3, full strength in all 4 extremities. Cranial nerves 2 through 12 grossly intact. Skin: Warm, dry, no rash Medical Decision & Procedures ER Provider Diagnostic Interpretation: CTA of the chest: Impression: Pulmonary embolus seen within the central, segmental and subsegmental pulmonary arteries within the left lung as well as within the segmental and subsegmental right lower lobe. No right heart strain. Additional findings: Atelectasis and scarring noted within both lungs. No parenchymal infarct or suggestion of infection. Trace left-sided pleural effusion. No pneumothorax. Subsegmental Mnire mediastinal and hilar lymph nodes, likely reactive. Evidence of prior cholecystectomy. Question cyst within the left kidney. No acute osseous abnormality. Laboratory Results 05/13/17 03:38 Red Blood Count 4.78, Mean Corpuscular Volume 84.3, Mean Corpuscular Hemoglobin 28.7, Mean Corpuscular Hemoglobin Concent 34.0, Mean Platelet Volume 10.3, Neutrophils (%) (Auto) 58.6, Lymphocytes (%) (Auto) 31.7, Monocytes (%) (Auto) 6.0, Eosinophils (%) (Auto) 3.2, Basophils (%) (Auto) 0.4, Neutrophils # (Auto) 4.01, Lymphocytes # (Auto) 2.17, Monocytes # (Auto) 0.41, Eosinophils # (Auto) 0.22, Basophils # (Auto) 0.03 05/13/17 03:38 Test 05/13/17 03:38 05/13/17 04:04 White Blood Count 6.85 K/uL (4.8-10.8) Red Blood Count 4.78 M/uL (4.2-5.4) Hemoglobin 13.7 g/dL (12.0-16.0) Hematocrit 40.3 % (37-47) Mean Corpuscular Volume 84.3 fL (80-100) Mean Corpuscular Hemoglobin 28.7 pg (25-34) Mean Corpuscular Hemoglobin Concent 34.0 g/dl (32-36) Platelet Count 220 K/uL (130-400) Mean Platelet Volume 10.3 fL (7.4-10.4) Neutrophils (%) (Auto) 58.6 % Lymphocytes (%) (Auto) 31.7 % Monocytes (%) (Auto) 6.0 % Eosinophils (%) (Auto) 3.2 % Basophils (%) (Auto) 0.4 % Neutrophils # (Auto) 4.01 K/uL (1.4-6.5) Lymphocytes # (Auto) 2.17 K/uL (1.2-3.4) Monocytes # (Auto) 0.41 K/uL (0.11-0.59) Eosinophils # (Auto) 0.22 K/uL (0-0.5) Basophils # (Auto) 0.03 K/uL (0-0.2) RDW Standard Deviation 40.8 fL (36.4-46.3) RDW Coefficient of Variation 13.3 % (11.5-14.5) Immature Granulocyte % (Auto) 0.1 % Immature Granulocyte # (Auto) 0.01 K/uL (0.00-0.02) Prothrombin Time 10.4 SECONDS (9.0-12.0) Prothromb Time International Ratio 1.0 (0.9-1.1) Activated Partial Thromboplast Time 23.1 SECONDS (21.0-31.0) Partial Thromboplastin Ratio 0.9 Anion Gap 5.0 mmol/L (3-11) Est Creatinine Clear Calc Drug Dose 32.9 ml/min Estimated GFR () 44.5 Estimated GFR (Non- 38.4 BUN/Creatinine Ratio 13.6 (10-20) Calcium Level 9.6 mg/dl (8.5-10.1) Total Bilirubin 0.4 mg/dl (0.2-1) Direct Bilirubin 0.1 mg/dl (0-0.2) Aspartate Amino Transf (AST/SGOT) 14 U/L (15-37) Alanine Aminotransferase (ALT/SGPT) 21 U/L (12-78) Alkaline Phosphatase 81 U/L (45-117) Total Creatine Kinase 129 U/L (26-192) Creatine Kinase MB 3.8 ng/ml (0.5-3.6) Creatine Kinase MB Ratio 2.9 (0-3.0) Total Protein 8.4 gm/dl (6.4-8.2) Albumin 4.2 gm/dl (3.4-5.0) Bedside Troponin I < 0.030 ng/ml (0-0.045) Laboratory results per my review. Medications Administered Medications (Trade) Dose Ordered Sig/Darwin Route Start Time Stop Time Status Last Admin Dose Admin Sodium Chloride 1,000 ml @ 125 mls/hr Q8H STAT IV 05/13/17 05:04 05/13/17 13:03 05/13/17 05:43 125 MLS/HR Heparin Sodium/ Dextrose (Heparin 25,000 Unit/500ml D5W) 25,000 unit STK-MED ONCE .ROUTE 05/13/17 06:14 05/13/17 06:15 DC 05/13/17 06:44 25,000 UNIT Heparin Sodium (Porcine) (Heparin Sq 5000 Unit/0.5ml) 5,000 unit STK-MED ONCE .ROUTE 05/13/17 06:14 05/13/17 06:15 DC 05/13/17 06:43 5,000 UNIT ECG Indication: chest pain Rate (beats per minute): 72 Rhythm: normal sinus Findings: no acute ischemic change, no ectopy, other (poor qulaity baseline) ED Course 0409: Past medical records reviewed. The patient was evaluated in room A11B. A complete history and physical examination was performed. 0413: Ordered Fentanyl Inj 25 mcg IV. 0504: Ordered Sodium Chloride 1000 ml @ 125 mls/hr IV. 0546: Ordered Heparin Sodium/Dextrose 1 ea N/A. 0603: I reviewed the patient's case with Dr. Land. He will evaluate the patient for further management. Medical Decision Differential diagnosis: Acute coronary syndrome, pulmonary embolus, aortic dissection, musculoskeletal pain, pneumonia, pleural effusion, pneumothorax This patient was evaluated and appeared to be in no significant distress. IV access was obtained and laboratory work was drawn. The patient was placed on the monitoring and evaluation advisor. She was hydrated with normal saline solution. EKG reveals no evidence of acute ischemic change. Given the patient's recent surgery, chest pain or shortness of breath, CT scan of the chest was performed and reveals bilateral pulmonary emboli. Patient was informed of the findings. She was started on heparin and discussed with Dr. Erazo the hospitalist service. He will evaluate the patient for further management. Medication Reconcilliation Current Medication List: was personally reviewed by me Blood Pressure Screening Patient's blood pressure: Normal blood pressure Consults Time Called: 06 Consulting Physician: Dr. Land. Returned Call: 06 I reviewed the patient's case with Dr. Land. He will evaluate the patient for further management. Impression Primary Impression: Pulmonary embolism Scribe Attestation The scribe's documentation has been prepared under my direction and personally reviewed by me in its entirety. I confirm that the note above accurately reflects all work, treatment, procedures, and medical decision making performed by me. Departure Information Referrals Karlos Moya M.D. (PCP) Patient Instructions My [facility]
[2017-05-13 04:50] LABS: PTT PATIENT 23.1 SECONDS (21.0-31.0)
[2017-05-13 04:51] LABS: ALBUMIN 4.2 gm/dl (3.4-5.0); CALCIUM 9.6 mg/dl (8.5-10.1); CREATININE 1.34 mg/dl (0.60-1.20); POTASSIUM 4.5 mmol/L (3.5-5.1)
[2017-05-13 04:56] LABS: CKMB 3.8 ng/ml (0.5-3.6); TOTAL PROTEIN 8.4 gm/dl (6.4-8.2)
[2017-05-13] MEDS ORDERED: SODIUM CHLORIDE 0.9% 1000ML 1,000 ML IV STA (05:04)
[2017-05-13] MEDS ORDERED: HEPARIN SOD 5000 UNIT/0.5 ML CARP ONE (06:14)
[2017-05-13] MEDS ORDERED: HEPARIN 25000 UNIT/500 ML D5W ONE (06:14)
[2017-05-13] MEDS ORDERED: ACETAMINOPHEN 325 MG TAB PO PRN (06:45)
[2017-05-13] MEDS ORDERED: NON-FORMULARY MEDICATION (Biotin 1 CAP) PO SCH (06:45)
--- NOTE | 2017-05-13 06:54 | History and Physical ---
History & Physical Date & Time of Service: May 13, 2017 at 06:52 Chief Complaint: Chest Pain Primary Care Physician: Karlos Moya M.D. History of Present Illness Source: patient, family, hospital records The patient is a 76-year-old female who presents to the emergency department with persistent pleuritic chest pain that began the day prior to arrival. She does not have any radiation of pain to the jaw to arms or to shoulders. She does have dyspnea on exertion, but does not have shortness of breath at rest. She did have third degree rectocele repair requiring hospitalization from April 30 to May 01. Past Medical/Surgical History Medical Problems: (1) Glaucoma Status: Chronic (2) Pneumonia Status: Chronic Surgical Problems: (1) History of cholecystectomy Status: Resolved (2) History of colonoscopy Status: Resolved (3) History of cystocele and rectocele repair Status: Resolved (4) History of hysterectomy Status: Resolved (5) History of ovarian cystectomy Status: Resolved Family History Diabetes Gallbladder disease Heart disease Kidney disease/stones Lung disease Social History Smoking Status: Never Smoker Smokeless Tobacco Use: No Alcohol Use: none Drug Use: none Marital Status: Housing status: lives with family Occupational Status: retired Immunizations History of Influenza Vaccine: Unknown History of Tetanus Vaccine?: Unknown History of Pneumococcal: Unknown History of Hepatitis B Vaccine: Unknown Multi-Drug Resistant Organisms History of MDRO: No Allergies Coded Allergies: Simvastatin (Verified Adverse Reaction, Intermediate, LEG CRAMPS, 04/29/17 ) Propoxyphene (Verified Adverse Reaction, Mild, sick in stomach, 04/29/17) Home Medications Scheduled Atorvastatin (Lipitor), 10 MG PO QAM Biotin (Biotin), 1 CAP PO Q2D Brimonidine Tartrate Oph (Alphagan P Oph), 1 DROP OPB BID Calcium & Phosphorus W/ Vitami (Calcium), 2,000 MG PO QAM Calcium W/ Vitamins D & K (Viactiv), 1 TAB PO QAM Dorzolamide Hcl (Trusopt Oph), 1 DROPS OP BID Ibuprofen Tab (Advil), 200 MG PO PRN Latanoprost (Xalatan 0.005% Oph Eli), 1 DROPS OP HS Sulfa/Trimethoprim (Bactrim Ds 800MG/160MG), 1 TAB PO BID Scheduled PRN Calcium Carbonate (Tums), 1 TAB PO DAILY PRN for Dyspepsia Review of Systems The patient denies palpitations, lower extremity swelling, vision change, hearing change, sore throat, fevers, chills, sweats, weight change, fatigue, nausea, vomiting, diarrhea or constipation, blood in urine or stool, dysuria, urinary frequency or urgency, headache, memory loss, loss of consciousness, rash, abnormal bruising or bleeding, imbalance, focal weakness, numbness or tingling in arms or legs, generalized arthralgias or myalgias, back or neck pain, or night sweats. The review of systems is otherwise negative other than for that already noted above, and at least 10 systems have been reviewed. Physical Exam Vital Signs Date Time Temp Pulse Resp B/P (MAP) Pulse Ox O2 Delivery O2 Flow Rate FiO2 05/13/17 06:00 85 19 134/60 96 Room Air 05/13/17 05:00 68 15 122/71 97 Room Air 05/13/17 04:12 97 Room Air 05/13/17 04:00 72 18 139/93 96 Room Air 05/13/17 03:59 77 05/13/17 03:55 96 Room Air 05/13/17 03:55 36.8 75 16 139/93 97 Room Air The patient is awake, well-developed and adequately nourished, alert and oriented 3, normocephalic and atraumatic, lying in bed and in moderate acute distress when attempting to take a deep breath. HEENT--PERRL, EOMI, mucous membranes and oropharynx normal. Neck--supple, no JVD or bruits, thyroid normal, trachea midline, no adenopathy. Heart--normal S1 and S2, no extra beats, no murmurs, rubs or gallops. Lungs--clear bilaterally. no respiratory distress, no accessory muscle use. Abdomen--normal bowel sounds and soft, nontender and nondistended, no hernias or masses, no organomegaly. Extremities--no cyanosis, clubbing. Right lower extremity with 1+ pretibial pitting edema. There are good distal pulses b/l. Dermatologic--normal skin turgor, normal color, warm and dry, no abnormal lymph nodes, no rash. Neurologic--cranial nerves II through XII grossly intact. Rheumatologic--normal range of motion. Psychiatric--appears appropriately concerned. Diagnostics Laboratory Results Results Past 24 Hours Test 05/13/17 03:38 05/13/17 04:04 Range/Units White Blood Count 6.85 4.8-10.8 K/uL Red Blood Count 4.78 4.2-5.4 M/uL Hemoglobin 13.7 12.0-16.0 g/dL Hematocrit 40.3 37-47 % Mean Corpuscular Volume 84.3 80-100 fL Mean Corpuscular Hemoglobin 28.7 25-34 pg Mean Corpuscular Hemoglobin Concent 34.0 32-36 g/dl Platelet Count 220 130-400 K/uL Mean Platelet Volume 10.3 7.4-10.4 fL Neutrophils (%) (Auto) 58.6 % Lymphocytes (%) (Auto) 31.7 % Monocytes (%) (Auto) 6.0 % Eosinophils (%) (Auto) 3.2 % Basophils (%) (Auto) 0.4 % Neutrophils # (Auto) 4.01 1.4-6.5 K/uL Lymphocytes # (Auto) 2.17 1.2-3.4 K/uL Monocytes # (Auto) 0.41 0.11-0.59 K/uL Eosinophils # (Auto) 0.22 0-0.5 K/uL Basophils # (Auto) 0.03 0-0.2 K/uL RDW Standard Deviation 40.8 36.4-46.3 fL RDW Coefficient of Variation 13.3 11.5-14.5 % Immature Granulocyte % (Auto) 0.1 % Immature Granulocyte # (Auto) 0.01 0.00-0.02 K/uL Prothrombin Time 10.4 9.0-12.0 SECONDS Prothromb Time International Ratio 1.0 0.9-1.1 Activated Partial Thromboplast Time 23.1 21.0-31.0 SECONDS Partial Thromboplastin Ratio 0.9 Sodium Level 137 136-145 mmol/L Potassium Level 4.5 3.5-5.1 mmol/L Chloride Level 106 98-107 mmol/L Carbon Dioxide Level 26 21-32 mmol/L Anion Gap 5.0 3-11 mmol/L Blood Urea Nitrogen 18 7-18 mg/dl Creatinine 1.34 0.60-1.20 mg/dl Est Creatinine Clear Calc Drug Dose 32.9 ml/min Estimated GFR () 44.5 Estimated GFR (Non- 38.4 BUN/Creatinine Ratio 13.6 10-20 Random Glucose 96 70-99 mg/dl Calcium Level 9.6 8.5-10.1 mg/dl Total Bilirubin 0.4 0.2-1 mg/dl Direct Bilirubin 0.1 0-0.2 mg/dl Aspartate Amino Transf (AST/SGOT) 14 15-37 U/L Alanine Aminotransferase (ALT/SGPT) 21 12-78 U/L Alkaline Phosphatase 81 45-117 U/L Total Creatine Kinase 129 26-192 U/L Creatine Kinase MB 3.8 0.5-3.6 ng/ml Creatine Kinase MB Ratio 2.9 0-3.0 Total Protein 8.4 6.4-8.2 gm/dl Albumin 4.2 3.4-5.0 gm/dl Bedside Troponin I < 0.030 0-0.045 ng/ml EKG EKG shows normal sinus rhythm at 70, there are no acute ST-T changes. Impression Assessment and Plan Bilateral pulmonary emboli-- The patient will be admitted to telemetry for serial cardiac enzymes, cardiac rhythm monitoring and a 2-D echocardiogram with Dopplers. Heparin IV standard concentration per protocol, with 5000 international units bolus given in the ED Order CT abdomen and pelvis with contrast to assess for possible pelvic vein thrombosis Order bilateral lower extremity venous Dopplers to assess for possible DVT Maintain bedrest until all studies completed. Renal insufficiency-- Creatinine 1.34. Admission Normal saline at 50 mils per hour Repeat labs in the a.m. tomorrow Hyperlipidemia-- Continue atorvastatin 10 mg by mouth every morning Glaucoma-- Continue outpatient dosings of Alphagan P, Trusopt and Xalatan Third-degree rectocele surgical repair performed 1216-17-- Continue Bactrim DS twice a day per postop protocol Level of Care Telemetry Advanced Directives Existing Advance Directive: No Existing Living Will: No Existing Power of X Ray Equipment Tester: No Resuscitation Status FULL RESUSCITATION VTE Prophylaxis VTE Risk Assessment Done? Y/N: Yes Risk Level: High Given or contraindicated: Other Anticoagulation (heparin IV standard concentration per protocol) Note Total Time: Critical Care 30 - 74 minutes
[2017-05-13] MEDS ORDERED: ONDANSETRON 8MG OD TAB PO PRN (07:00)
[2017-05-13] MEDS ORDERED: HEPARIN 25,000 UNIT/500ML D5W 500 ML IV PRN (07:15)
--- NOTE | 2017-05-13 07:36 | DIAGNOSTIC IMAGING REPORT ---
CHEST CTA for PULMONARY ARTERIES CT DOSE: 464.44 mGy.cm HISTORY: post op with L chest pain and short of breath, ? PE TECHNIQUE: Multiaxial CT images of the chest were performed following the intravenous administration of contrast to evaluate the pulmonary arteries. Maximal intensity projection images were also obtained. A dose lowering technique was utilized adhering to the principles of ALARA. COMPARISON STUDY: Chest 08/09/2013. FINDINGS: Normal caliber thoracic aorta with no evidence for dissection. Trace left pleural effusion. Multiple bilateral pulmonary emboli seen within the distal left main pulmonary artery and extending into the lobar and segmental branches of the left lung. There are also segmental pulmonary emboli seen within the right upper lobe and right lower lobe. This results in slight flattening of the interventricular septum consistent with mild right-sided heart strain. Cholecystectomy. The liver, spleen, and visualized adrenal glands are unremarkable. No mediastinal or hilar lymphadenopathy. No fractures within the visualized osseous structures. The central airways are patent. No pneumothorax. A 4 mm indeterminate pulmonary nodule within the left lower lobe on image 56 of 92. Bibasilar linear densities favor subsegmental atelectasis. IMPRESSION: 1. Bilateral pulmonary emboli resulting in mild right-sided heart strain. 2. Trace left pleural effusion. 3. A 4 mm indeterminate nodule within the left lower lobe. Please refer to the chart below for recommended follow-up. Please refer to below summary of Fleischner criteria recommendations for follow-up of incidental CT nodules (Christi Lees, Guidelines for management of small pulmonary nodules detected on CT scans: A statement from the Fleischner Society, Radiology 237: [phone].) SOLID NODULES Solitary nodule size: <6 mm * Low risk patients: no follow-up needed * high risk patients: optional CT at 12 months Solitary nodule size: 6-8 mm * Low risk patients: follow-up at 6-12 months, then consider further follow-up at 18-24 months * high risk patients: initial follow-up CT at 6-12 months and then at 18-24 months if no change Solitary nodule size: >8 mm * either low or high risk patients - consider follow-up CT at 3 months, and/or CT-PET, and/or biopsy Multiple nodules size: <6 mm * Low risk patients: no routine follow-up * high risk patients: optional CT at 12 months Multiple nodules size: 6-8 mm * Low risk patients: follow-up at 3-6 months, then consider further follow-up at 18-24 months * high risk patients: follow-up at 3-6 months, then at 18-24 months if no change Multiple nodules size: >8 mm * Low risk patients: follow-up at 3-6 months, then consider further follow-up at 18-24 months * high risk patients: follow-up at 3-6 months, then at 18-24 months if no change Note: newly detected indeterminate nodule in persons 35 years of age or older. * Low risk patients: minimal or absent history of smoking and/or other known risk factors * high risk patients: history of smoking or of other known risk factors (e.g. first degree relative with lung cancer, or exposure to asbestos, radon, uranium) * if a nodule up to 8 mm is partly solid or is ground glass further follow-up is required after 24 months to exclude possible slow growing adenocarcinoma (VICK) SUBSOLID NODULES Solitary pure ground-glass nodule * nodule size <6 mm - no CT follow-up required * nodule size >=6 mm - follow-up CT at 6-12 months, then every 2 years until 5 years Solitary part-solid nodule * nodule size <6 mm - no CT follow-up required * nodule size >=6 mm - follow-up CT at 3-6 months. If unchanged, and solid component remains <6 mm, then annual follow-up for 5 years Multiple subsolid nodules * nodule size <6 mm - follow-up CT at 3-6 months, consider further follow-up at 2 and 4 years if stable * nodule size >=6 mm - follow-up CT at 3-6 months, subsequent management based on the most suspicious nodule(s) Electronically signed by: John Whitehead M.D. 05/13/2017 7:34 AM Dictated Date/Time: 05/13/2017 7:30 AM
--- NOTE | 2017-05-13 07:48 | DIAGNOSTIC IMAGING REPORT ---
CT SCAN OF THE ABDOMEN AND PELVIS WITH IV CONTRAST CLINICAL HISTORY: Pelvic pain. Reported history of recent rectocele surgery. COMPARISON STUDY: Abdominal radiographs dated 09/28/2013. TECHNIQUE: Following the IV administration of 95 cc of Optiray 320, CT scan of the abdomen and pelvis is performed from the lung bases to the proximal femora. Images are reviewed in the axial, sagittal, and coronal planes. IV contrast was administered without complication. A dose lowering technique was utilized adhering to the principles of ALARA. CT DOSE: 389.52 mGy.cm FINDINGS: Lung bases: The heart is normal in size and without pericardial effusion. There are trace pleural effusions with bibasilar atelectasis. There is a tiny hiatal hernia. Liver: The contrast-enhanced liver is normal in size, contour, and attenuation. There is minimal central intrahepatic biliary ductal dilatation. The hepatic veins and portal veins are patent. Gallbladder: Surgically absent noting clips in the gallbladder fossa. Spleen: Normal in size and attenuation. Pancreas: Unremarkable. Adrenal glands: Unremarkable. Kidneys: The contrast enhanced kidneys are normal in size and without hydronephrosis. The kidneys enhance symmetrically. Excreted contrast fills the renal collecting system and ureters. A 10 mm cyst arises from the upper pole of the left kidney. Abdominal vasculature: The abdominal aorta is normal in course and caliber. Bowel: There is mild colonic diverticulosis without CT evidence of acute diverticulitis. No bowel obstruction is seen. Mild to moderate constipation is observed. The appendix is well-visualized and normal. There is mild perianal and perirectal induration. No organized fluid collection is seen. Peritoneum: There is no intraperitoneal free air or abdominal ascites. Lymphadenopathy: None. Pelvic viscera: The bladder is normal as visualized and filled with excreted contrast. Small foci of gas within the bladder lumen are likely related to instrumentation. The uterus is surgically absent. No adnexal lesion is seen. Skeletal structures: The skeletal structures are osteopenic. Mild lumbosacral spondylosis is observed. Grade 1 anterolisthesis is seen at L4-L5. No lytic or blastic lesions are seen. IMPRESSION: 1. Mild perirectal and perianal induration is nonspecific and likely related to recent surgery. No organized fluid collection is seen. 2. Trace pleural effusions. 3. Mild colonic diverticulosis without CT evidence of acute diverticulosis. 4. Small foci of gas are present within the bladder lumen and likely related to recent instrumentation. Correlation with clinical findings and urinalysis will be required. Electronically signed by: Benjamin Easley M.D. 05/13/2017 7:47 AM Dictated Date/Time: 05/13/2017 7:39 AM
--- NOTE | 2017-05-13 08:01 | DIAGNOSTIC IMAGING REPORT ---
BILATERAL LOWER EXTREMITY VENOUS DOPPLER CLINICAL HISTORY: Pulmonary emboli. COMPARISON STUDY: No previous studies for comparison. TECHNIQUE: Sonography of the deep venous system of the bilateral lower extremities was performed. Compression and augmentation were evaluated. FINDINGS: No deep venous thrombus is identified within the right lower extremity. Note is made of deep venous thrombus within the left peroneal vein. IMPRESSION: 1. Deep venous thrombus within left peroneal vein. 2. No deep venous thrombus within the right lower extremity. Electronically signed by: Girish Asif M.D. 05/13/2017 8:00 AM Dictated Date/Time: 05/13/2017 7:58 AM
[2017-05-13] MEDS: SULFAMETHOXAZOLE/TRIMETHOPRIM DS 800/160MG TAB PO SCH ×2 (08:47→20:38)
[2017-05-13] MEDS: SODIUM CHLORIDE 0.9% 1000ML 1,000 ML IV SCH (08:47)
[2017-05-13] MEDS: BRIMONIDINE TARTRATE-P 0.15% 5 ML BTL OPB SCH ×2 (08:53→18:39)
[2017-05-13] MEDS: DORZOLAMIDE HCL 2% OPH SOLN 10 ML BTL OP SCH ×2 (08:53→18:39)
[2017-05-13] MEDS: ATORVASTATIN 10 MG TAB PO SCH (08:54)
[2017-05-13] MEDS: CALCIUM 600MG + VIT D 400 IU TAB PO SCH (08:54)
[2017-05-13] MEDS ORDERED: LEVALBUTEROL/IPRATROPIUM NEB INH SCH (09:00)
[2017-05-13] MEDS ORDERED: CALCIUM PO SCH (09:00)
[2017-05-13] MEDS ORDERED: VITAMINS D PO SCH (09:00)
[2017-05-13] MEDS ORDERED: [UNRECOGNIZED DRUG - OTHER] PO SCH (09:00)
[2017-05-13] MEDS: LEVALBUTEROL 1.25MG/0.5ML NEB INH SCH ×3 (10:42→20:16)
[2017-05-13] MEDS: IPRATROPIUM BROMIDE NEB SOLN 0.02% 2.5 ML VIAL INH SCH ×3 (10:42→20:16)
[2017-05-13] MEDS ORDERED: NURSING VERBAL MED ORDER ONE (11:45)
[2017-05-13] MEDS ORDERED: IBUPROFEN 600 MG TAB ONE (11:58)
[2017-05-13] MEDS ORDERED: IBUPROFEN 600 MG TAB PO PRN (12:15)
[2017-05-13] MEDS ORDERED: PERFLUTREN LIPID MICROSPHERE (DEFINITY) IV ONE (13:09)
--- NOTE | 2017-05-13 14:17 | HISTORY & PHYSICAL EXAMINATION ---
DATE OF ADMISSION: 05/13/2017 CHIEF COMPLAINT: Chest pain, left calf tenderness. HISTORY OF PRESENT ILLNESS: The patient is a 76-year-old 4, para 4. She had a RAFAT-BSO at age 40 for heavy vaginal bleeding and ovarian cyst. I then did an anterior and posterior repair with a suprapubic catheter in 2012 for urinary stress incontinence and a cystocele and rectocele. She did well up until 2015 when she had a recurrence of the rectocele. On 06/30/2016, she underwent a posterior colporrhaphy with vaginal packing, was admitted for approximately 2 postoperative days. Did well postoperatively. She was seen in the Emergency Room at about 3:00 a.m. with some shortness of breath and pain on breathing. Workup showed multiple pulmonary emboli and a thrombus in her left leg below the knee, was admitted for heparinization. PAST MEDICAL HISTORY: Four children in good health. ALLERGIES: No known drug allergies. PAST SURGICAL HISTORY: Had her gallbladder removed. She had a RAFAT-BSO. Had an ovarian cyst removed. Had an anterior and posterior repair with suprapubic catheter, and on 04/29/2017 she had a posterior repair. SOCIAL HISTORY: No smoking. No alcohol intake. 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 FAMILY HISTORY: Mom at age 73, diabetes, stroke, status post open heart surgery. Father at age 90, lung cancer, was a former smoker. Five sisters, 2 brothers; 1 sister at age 78 of kidney cancer. REVIEW OF SYSTEMS: HEAD: No symptoms of frequent severe headaches. HEENT: Eyes: No symptoms of blurred vision or double vision. Ear infections. RESPIRATORY: She does complain of some shortness of breath. PHYSICAL EXAMINATION: GENERAL: Well-developed, well-nourished 76-year-old white female, alert, oriented x3 and cooperative, in no acute distress, appears stated age. EYES: Conjunctivae are pink. Sclerae white. No evidence of jaundice. EARS: Had normal light reflex bilaterally. NOSE: Had normal mucosa. Septum is midline. There were no polyps. THROAT: No erythema or evidence of infection. CHEST: Clear to auscultation and percussion. HEART: Had a regular rhythm. S1 and S2 were normal. ABDOMEN: Soft and nontender. EXTREMITIES: Examination of extremities did reveal some tenderness to the left calf. PELVIC: Deferred due to recent posterior repair. IMPRESSIONS OF THIS CASE: Status post posterior colporrhaphy on 04/29/2017, status post cholecystectomy, status post total abdominal hysterectomy and bilateral salpingo-oophorectomy, status post ovarian cystectomy, status post anterior and posterior repair, pulmonary emboli, and venous thrombosis.
[2017-05-13 14:29] LABS: PTT PATIENT 56.8 SECONDS (21.0-31.0)
--- NOTE | 2017-05-13 14:41 | Progress Note ---
Subjective Date of Service: May 13, 2017. Subjective Pt evaluation today including: conversation w/ patient, conversation w/ family , physical exam, lab review, review of studies, review of inpatient medication list Pain: chest pain, pleuritic PO Intake: adequate Voiding: no voiding problems patient still with some chest pain, no dyspnea discussed results of doppler with left leg DVT patient would prefer to use Motrin for pain relief Problem List Medical Problems: (1) Pulmonary embolism Status: Acute Review of Systems Cardiac: + chest pain (pleuritic) All Other Systems: Reviewed and Negative Medications Current Inpatient Medications Medications (Trade) Dose Ordered Sig/Darwin Route Start Time Stop Time Status Last Admin Dose Admin Ioversol (Optiray 320) 125 ml UD PRN IV 05/13/17 04:30 05/17/17 04:29 Acetaminophen (Tylenol Tab) 650 mg Q4H PRN PO 05/13/17 06:45 06/12/17 06:44 Atorvastatin Calcium (Lipitor Tab) 10 mg QAM PO 05/13/17 09:00 06/12/17 08:59 05/13/17 08:54 10 MG Brimonidine Tartrate (Alphagan-P 0.15% Oph Soln) 1 drops BID OPB 05/13/17 09:00 06/12/17 08:59 05/13/17 08:53 1 DROPS Dorzolamide HCl (Trusopt 2% Oph Soln) 1 drops BID OP 05/13/17 09:00 06/12/17 08:59 05/13/17 08:53 1 DROPS Latanoprost (Xalatan Oph Soln) 1 drops HS OP 05/13/17 21:00 06/12/17 20:59 Trimethoprim/ Sulfamethoxazole (Septra Ds 800/ 160MG Tab) 1 tab BID PO 05/13/17 09:00 05/14/17 08:59 05/13/17 08:47 1 TAB Calcium/Vitamin D (Caltrate Plus Tab) 2 tab QAM PO 05/13/17 09:00 06/12/17 08:59 05/13/17 08:54 2 TAB Ioversol (Optiray 320) 100 ml UD PRN IV 05/13/17 06:45 05/17/17 06:44 Sodium Chloride 1,000 ml @ 50 mls/hr Q20H IV 05/13/17 08:30 06/12/17 08:29 05/13/17 08:47 50 MLS/HR Ondansetron HCl (Zofran Odt) 8 mg Q6H PRN PO 05/13/17 07:00 06/12/17 06:59 Acetaminophen/ Hydrocodone Bitart ([place] 5/325 Tab) 1 tab Q6H PRN PO 05/13/17 03:30 05/27/17 03:29 Morphine Sulfate (MoRPHine SULFATE INJ) 2 mg Q2H PRN IV 05/13/17 03:30 05/27/17 03:29 Heparin Sodium/ Dextrose 500 ml @ 21 mls/hr [id number] PRN IV 05/13/17 07:15 06/12/17 07:14 Ipratropium [place] (Atrovent 0.02% 0.5MG/2.5ML Neb) 0.5 mg Q6R INH 05/13/17 09:00 06/12/17 08:59 05/13/17 14:28 0.5 MG Levalbuterol (Xopenex 1.25MG/ 0.5ML Neb) 1.25 mg Q6R INH 05/13/17 09:00 06/12/17 08:59 05/13/17 14:28 1.25 MG Ibuprofen (Motrin Tab) 600 mg Q6H PRN PO 05/13/17 12:15 06/12/17 12:14 Objective Vital Signs Date Time Temp Pulse Resp B/P (MAP) Pulse Ox O2 Delivery O2 Flow Rate FiO2 05/13/17 14:28 76 12 94 Room Air 05/13/17 12:00 96 Room Air 05/13/17 08:27 36.7 86 18 146/82 (103) 96 Room Air 05/13/17 08:21 36.7 86 18 146/82 Room Air 05/13/17 08:00 96 Room Air 05/13/17 07:10 36.8 85 19 134/60 96 05/13/17 06:00 85 19 134/60 96 Room Air 05/13/17 05:00 68 15 122/71 97 Room Air 05/13/17 04:12 97 Room Air 05/13/17 04:00 72 18 139/93 96 Room Air 05/13/17 03:59 77 05/13/17 03:55 96 Room Air 05/13/17 03:55 36.8 75 16 139/93 97 Room Air Physical Exam General Appearance: WD/WN, no apparent distress Eyes: normal inspection, EOMI, sclerae normal ENT: normal ENT inspection, hearing grossly normal, pharynx normal Neck: supple, no adenopathy, no JVD, trachea midline Respiratory/Chest: chest non-tender, lungs clear, normal breath sounds, no respiratory distress, no accessory muscle use Cardiovascular: regular rate, rhythm, no edema, no gallop, no JVD, no murmur Abdomen: normal bowel sounds, non tender, soft, no organomegaly Extremities: normal range of motion, non-tender, normal inspection, no pedal edema, no calf tenderness, pelvis stable Neurologic/Psychiatric: cushion maker II-XII nml as tested, no motor/sensory deficits, alert, normal mood/affect, oriented x 3 Skin: normal color, warm/dry, no rash Laboratory Results Last 24 Hours Test 05/13/17 03:38 05/13/17 04:04 05/13/17 13:46 White Blood Count 6.85 K/uL Red Blood Count 4.78 M/uL Hemoglobin 13.7 g/dL Hematocrit 40.3 % Mean Corpuscular Volume 84.3 fL Mean Corpuscular Hemoglobin 28.7 pg Mean Corpuscular Hemoglobin Concent 34.0 g/dl Platelet Count 220 K/uL Mean Platelet Volume 10.3 fL Neutrophils (%) (Auto) 58.6 % Lymphocytes (%) (Auto) 31.7 % Monocytes (%) (Auto) 6.0 % Eosinophils (%) (Auto) 3.2 % Basophils (%) (Auto) 0.4 % Neutrophils # (Auto) 4.01 K/uL Lymphocytes # (Auto) 2.17 K/uL Monocytes # (Auto) 0.41 K/uL Eosinophils # (Auto) 0.22 K/uL Basophils # (Auto) 0.03 K/uL RDW Standard Deviation 40.8 fL RDW Coefficient of Variation 13.3 % Immature Granulocyte % (Auto) 0.1 % Immature Granulocyte # (Auto) 0.01 K/uL Prothrombin Time 10.4 SECONDS Prothromb Time International Ratio 1.0 Activated Partial Thromboplast Time 23.1 SECONDS 56.8 SECONDS Partial Thromboplastin Ratio 0.9 2.2 Sodium Level 137 mmol/L Potassium Level 4.5 mmol/L Chloride Level 106 mmol/L Carbon Dioxide Level 26 mmol/L Anion Gap 5.0 mmol/L Blood Urea Nitrogen 18 mg/dl Creatinine 1.34 mg/dl Est Creatinine Clear Calc Drug Dose 32.9 ml/min Estimated GFR () 44.5 Estimated GFR (Non- 38.4 BUN/Creatinine Ratio 13.6 Random Glucose 96 mg/dl Calcium Level 9.6 mg/dl Total Bilirubin 0.4 mg/dl Direct Bilirubin 0.1 mg/dl Aspartate Amino Transf (AST/SGOT) 14 U/L Alanine Aminotransferase (ALT/SGPT) 21 U/L Alkaline Phosphatase 81 U/L Total Creatine Kinase 129 U/L Creatine Kinase MB 3.8 ng/ml Creatine Kinase MB Ratio 2.9 Total Protein 8.4 gm/dl Albumin 4.2 gm/dl Bedside Troponin I < 0.030 ng/ml Assessment and Plan 76 yo female with submassive, provoked bilateral PE and a left leg DVT - Submassive, bilateral PE, provoked from recent gynecologic surgery earlier this month heparin drip today, patient agrees to Xarelto, will start tonight still with some pleuritic pain, relieved with Motrin no hypoxia - Left leg DVT: treat with Xarelto - Recent rectocele repair: patient complains of some green discharge was treated for UTI with Bactrim she would like to see Dr. Kaplan, consult placed, not urgent likely for discharge tomorrow
--- NOTE | 2017-05-13 16:36 | ECHOCARDIOGRAM REPORT ---
*NOTICE TO RECEIVING [employer] This information is strictly Confidential and protected under [place] law. [place] law prohibits you from making any further disclosure of this information unless further disclosure is expressly permitted by the written consent of the person to whom it pertains or is authorized by law. A general authorization for the release of medical or other information is not sufficient for this purpose. Hospital accepts no responsibility if the information is made available to any other person, INCLUDING THE PATIENT. Interpretation Summary * Name: ZULLY YANEZ Study Date: 05/13/2017 12:36 PM BP: 146/82 mmHg * Patient Location: C.2T\S\S244\S\1 HR: 86 * : 1940 (M/d/yyyy) Gender: Female Height: 62 in * Age: 76 yrs Ethnicity: CA Weight: 156 lb * Ordering Physician: Jaun Dai * Referring Physician: Self, Referred * Performed By: Kirsten Victoria RCS * * Reason For Study: B/L PE * BSA: 1.7 m2 * -- Conclusions -- * 1. Normal left ventricular size and systolic function. EF 60-65%. No regional wall motion abnormalities. No left ventricular hypertrophy. Type 1 diastolic dysfunction. * 2. No significant valvular abnormalities visualized. * 3. No prior study available for comparison Procedure Details * A complete two-dimensional transthoracic echocardiogram was performed (2D, M-mode, Doppler and color flow Doppler). Left Ventricle * Normal left ventricular size and systolic function. EF 60-65%. No regional wall motion abnormalities. No left ventricular hypertrophy. Type 1 diastolic dysfunction. Right Ventricle * The right ventricle is normal in size and function. * The right ventricular systolic function is normal as assessed by tricuspid annular plane systolic excursion (TAPSE) (normal >1.5 cm). Atria * The left atrial size is normal. * Right atrial size is normal. * There is no evidence of atrial septal defect, but resolution does not allow assessment for a patent foramen ovale. Mitral Valve * The mitral valve leaflets appear normal. There is no evidence of stenosis, fluttering, or prolapse. * There is no mitral valve stenosis. * There is trace mitral regurgitation. Aortic Valve * The aortic valve is trileaflet. * No hemodynamically significant valvular aortic stenosis. * There is no significant aortic regurgitation. Pulmonic Valve * The pulmonary valve is inadequately visualized, but the Doppler data is adequate for interpretation. * There is no pulmonic valvular stenosis. * There is no significant pulmonary regurgitation. Great Vessels * The aortic root is normal size. * Aortic arch of normal dimension. Pericardium/Pleural * There is no pericardial effusion. Great Vessels * Normal inferior vena cava size and collapsability with sniff indicates a normal right atrial pressure of 3 mmHg MMode 2D Measurements and Calculations IVSd 0.99 cm IVSs 1.6 cm LVIDd 3.6 cm LVIDs 2.0 cm LVPWd 0.96 cm LVPWs 1.7 cm IVS/LVPW 1.0 FS 44.8 % EDV(Teich) 53.1 ml ESV(Teich) 12.2 ml EF(Teich) 77.0 % EDV(cubed) 45.2 ml ESV(cubed) 7.6 ml EF(cubed) 83.2 % % IVS thick 58.0 % % LVPW thick 81.9 % LV mass(C)d 102.1 grams LV mass(C)dI 59.4 grams/m\S\2 LV mass(C)s 116.1 grams LV mass(C)sI 67.5 grams/m\S\2 SV(Teich) 40.9 ml SI(Teich) 23.8 ml/m\S\2 SV(cubed) 37.6 ml SI(cubed) 21.9 ml/m\S\2 Ao root diam 2.8 cm Ao root area 6.2 cm\S\2 LA dimension 3.1 cm LA/Ao 1.1 LVAd ap4 23.5 cm\S\2 LVLd ap4 7.0 cm EDV(MOD-sp4) 63.1 ml EDV(sp4-el) 66.7 ml LVAs ap4 13.0 cm\S\2 LVLs ap4 5.6 cm ESV(MOD-sp4) 25.1 ml ESV(sp4-el) 25.5 ml EF(MOD-sp4) 60.3 % EF(sp4-el) 61.8 % LVAd ap2 23.8 cm\S\2 LVLd ap2 7.6 cm EDV(MOD-sp2) 61.7 ml EDV(sp2-el) 63.6 ml LVAs ap2 12.5 cm\S\2 LVLs ap2 5.7 cm ESV(MOD-sp2) 23.5 ml ESV(sp2-el) 23.1 ml EF(MOD-sp2) 61.9 % EF(sp2-el) 63.7 % LVLd %diff 7.6 % EDV(MOD-bp) 64.4 ml LVLs %diff 1.2 % ESV(MOD-bp) 24.3 ml EF(MOD-bp) 62.3 % SV(MOD-sp4) 38.1 ml SI(MOD-sp4) 22.1 ml/m\S\2 SV(MOD-sp2) 38.1 ml SI(MOD-sp2) 22.2 ml/m\S\2 SV(MOD-bp) 40.1 ml SI(MOD-bp) 23.3 ml/m\S\2 SV(sp4-el) 41.2 ml SI(sp4-el) 24.0 ml/m\S\2 SV(sp2-el) 40.5 ml SI(sp2-el) 23.6 ml/m\S\2 Doppler Measurements and Calculations MV E max ryder 91.7 cm/sec MV A max ryder 113.2 cm/sec MV E/A 0.81 MV dec time 0.17 sec Ao V2 max 122.4 cm/sec Ao max PG 6.0 mmHg Ao max PG (full) 0.67 mmHg LV V1 max PG 5.3 mmHg LV V1 max 115.4 cm/sec TV E max ryder 63.1 cm/sec
[2017-05-13] MEDS: RIVAROXABAN TAB 15 MG TAB PO SCH (20:35)
[2017-05-13] MEDS ORDERED: LATANOPROST 0.005% OP SOLN 2.5 ML BTL OP SCH (21:00)
[2017-05-14 01:59] VITALS: PULSE 79; O2SAT 94
[2017-05-14] MEDS: IPRATROPIUM BROMIDE NEB SOLN 0.02% 2.5 ML VIAL INH SCH ×2 (01:59→08:06)
[2017-05-14] MEDS: LEVALBUTEROL 1.25MG/0.5ML NEB INH SCH ×2 (01:59→08:06)
[2017-05-14 03:51] VITALS: BP 138/74; PULSE 87; TEMP 36.8; O2SAT 96
[2017-05-14 04:09] LABS: BASO % 0.5 %; BASO ABS # 0.02 K/uL (0-0.2); EOS % 3.1 %; EOS ABS # 0.12 K/uL (0-0.5); HEMATOCRIT 34.9 % (37-47); HEMOGLOBIN 11.7 g/dL (12.0-16.0); IG# 0.02 K/uL (0.00-0.02); LYMPH % 42.7 %; LYMPH ABS # 1.63 K/uL (1.2-3.4); MEAN CELL VOLUME 84.3 fL (80-100); MEAN CORPUSCULAR HEMOGLOBIN 28.3 pg (25-34); MEAN CORPUSCULAR HGB CONC 33.5 g/dl (32-36); MEAN PLATELET VOLUME 9.4 fL (7.4-10.4); MONO % 8.6 %; MONO ABS # 0.33 K/uL (0.11-0.59); NEUT % 44.6 %; PLATELET COUNT 154 K/uL (130-400); RED CELL DISTRIBUTION WIDTH CV 13.5 % (11.5-14.5); RED CELL DISTRIBUTION WIDTH SD 41.4 fL (36.4-46.3); WHITE BLOOD COUNT 3.82 K/uL (4.8-10.8)
[2017-05-14 04:18] LABS: INR 1.2 (0.9-1.1)
[2017-05-14 04:38] LABS: ALBUMIN 3.3 gm/dl (3.4-5.0); ALKALINE PHOSPHATASE 72 U/L (45-117); ALT/SGPT 17 U/L (12-78); AST/SGOT 11 U/L (15-37); BLOOD UREA NITROGEN 14 mg/dl (7-18); CALCIUM 8.5 mg/dl (8.5-10.1); CARBON DIOXIDE 22 mmol/L (21-32); GLUCOSE 94 mg/dl (70-99); POTASSIUM 3.6 mmol/L (3.5-5.1); SODIUM 140 mmol/L (136-145); TOTAL PROTEIN 6.9 gm/dl (6.4-8.2)
[2017-05-14] MEDS: SODIUM CHLORIDE 0.9% 1000ML 1,000 ML IV SCH (05:00)
[2017-05-14 07:42] VITALS: BP 121/75; PULSE 81; TEMP 36.7; O2SAT 94
[2017-05-14 08:06] VITALS: PULSE 76; O2SAT 93
[2017-05-14] MEDS: ATORVASTATIN 10 MG TAB PO SCH (08:23)
[2017-05-14] MEDS: CALCIUM 600MG + VIT D 400 IU TAB PO SCH (08:23)
[2017-05-14] MEDS: RIVAROXABAN TAB 15 MG TAB PO SCH (08:23)
[2017-05-14] MEDS: DORZOLAMIDE HCL 2% OPH SOLN 10 ML BTL OP SCH (08:24)
[2017-05-14] MEDS: BRIMONIDINE TARTRATE-P 0.15% 5 ML BTL OPB SCH (08:25)
[2017-05-14] MEDS ORDERED: XRL15 PO (09:13)
--- NOTE | 2017-05-14 09:18 | Discharge Instructions ---
Discharge Instructions Date of Service May 14, 2017. Admission Reason for Admission: Bilateral Pulmonary Embolism Discharge Discharge Diagnosis / Problem: (1) Bilateral pulmonary embolism VTE Date & Time Date of VTE Diagnosis: May 13, 2017 Time of VTE Diagnosis: 04:13 Discharge Goals Goal(s): Improve function, Improve disease control Activity Recommendations Activity Limitations: resume your previous activity . Instructions / Follow-Up Instructions / Follow-Up Medications: - XARELTO: 15mg twice a day for 21 days, after three weeks you will change to 20mg once daily, Dr. Moya can write this prescription for you Bilateral pulmonary emboli: as we discussed, this would appear to be provoked since you had surgery within the past month would recommend 3-6 months of therapy, leaning more towards the latter 6 months treatment will be Xarelto Left leg DVT, peroneal vein: same treatment as above Recent rectocele repair: as we discussed, if you continue to notice some increased bleeding or any clots, call Dr. Kaplan immediately to let him know what is going on FOLLOW UP - call Dr. Moya's office on Tuesday to scheduled a follow up - keep appointment with Dr. Kaplan as previously scheduled, but again, call sooner if you continue to have increased spotting or any clots Medication Instructions: Your condition is typically treated with an anticoagulant. Anticoagulants will thin your blood to help prevent new clots. * You should take her medication exactly as directed. * Never skip a dose. * Never take a double dose. If you miss a dose, take it as soon as you remember. Call your Primary Care doctor if you experience any of the following: * Swelling or Pain in your leg * Sudden, continuous pain deep in a muscle * Pain that worsens when you are active or when you stand still for a long time * Chest Pain * Sudden Shortness of Breath * Rapid or pounding heart beat * Fainting * Dizziness * Cough with blood or bloody sputum * Sweating more than normal * Bruises * Heavy or uncontrolled bleeding * Blood in your urine, stool or vomit * Black or tarry stools Caring for Your Self at Home: * Avoid sitting, standing or lying down for long periods without moving your legs and feet * When traveling by car, stop to get out and move around at least once every 3 hours * On long airplane, train or bus rides, get up and move around when possible * If you can't get up, wiggle your toes and tighten your calves to keep your blood moving Follow Up: It is important for you to keep your follow up appointments with your medical provider. Current Hospital Diet Patient's current hospital diet: AHA Diet (Heart Healthy) Discharge Diet Recommended Diet: AHA Diet (Heart Healthy) Pending Studies Studies pending at discharge: no Medical Emergencies . Who to Call and When: Medical Emergencies: If at any time you feel your situation is an emergency, please call 911 immediately. . Non-Emergent Contact Non-Emergency issues call your: Primary Care Provider Call Non-Emergent contact if: your pain is worsening, you have any medication questions . . "Provider Documentation" section prepared by Julio C Adler. . VTE Core Measure Inpt VTE Proph given/why not?: Other Anticoagulation (heparin IV standard concentration per protocol) [place] Drug Monitoring Program Search Results: no issues identified
[2017-05-14 10:00] VITALS: BP 121/75; PULSE 76; TEMP 36.7; O2SAT 93
--- NOTE | 2017-05-15 08:51 | Discharge Summary ---
Discharge Summary Date of Service May 14, 2017. Discharge Summary Admission Date: May 13, 2017 at 06:25 Discharge Date: May 14, 2017 Discharge Disposition: Home Principal Diagnosis: Bilateral pulmonary emboli Problems/Secondary Diagnoses: Acute hypoxic respiratory failure, resolved Recent rectocele repair Recent UTI Immunizations: Have You Had Influenza Vaccine: Unknown History of Tetanus Vaccine?: Unknown History of Pneumococcal: Unknown History of Hepatitis B Vaccine: Unknown Procedures: none Consultations: Gynecology - Dr. Kaplan Medication Reconciliation New Medications: Rivaroxaban (Xarelto) 15 Mg Tab 15 MG PO BID for 21 Days, #42 TAB 0 Refills Continued Medications: Atorvastatin (Lipitor) 10 Mg Tab 10 MG PO QAM, TAB Biotin (Biotin) 1 Mg Cap 1 CAP PO Q2D Brimonidine Tartrate Oph (Alphagan P Oph) 0.15 % Eli 1 DROP OPB BID, BTL Calcium & Phosphorus W/ Vitami (Calcium) 1 Tab Tab 2000 MG PO QAM Calcium Carbonate (Tums) 500 Mg Chew 1 TAB PO DAILY PRN for Dyspepsia Calcium W/ Vitamins D & K (Viactiv) 1 Chw Chw 1 TAB PO QAM Dorzolamide Hcl (Trusopt Oph) 2 % Eli 1 DROPS OP BID Ibuprofen Tab (Advil) 200 Mg Tab 200 MG PO PRN, TAB Latanoprost (Xalatan 0.005% Oph Eli) 0.005 % Eli 1 DROPS OP HS for 90 Days, #7.5 ML 3 Refills Discontinued Medications: Sulfa/Trimethoprim (Bactrim Ds 800MG/160MG) Tab 1 TAB PO BID for 7 Days BEGIN 05/07/17 X 7 DAYS Discharge Exam Patient feeling well, no dyspnea, minimal chest pain on the day of discharge. She reported that she noticed a slight increase in her vaginal bleeding after starting anticoagulation. She had been seeing some sporadic spotting prior to admission. With anticoagulation, she noticed that the spots were slightly larger, no clots. Discussed plan for Xarelto, she understood, all questions answered. Review of Systems: Constitutional: No fever, No chills, No sweats, No weight loss, No weakness , No fatigue, No problem reported Eyes: No worsening of vision, No eye pain, No redness, No discharge, No diplopia, No problem reported ENT: No hearing loss, No unusual epistaxis, No nasal symptoms, No sore throat, No tinnitus, No dental problems, No trouble swallowing, No problem reported Respiratory: + dyspnea on exertion, No cough, No sputum, No wheezing, No shortness of breath, No dyspnea at rest, No hemoptysis, No problem reported Cardiovascular: + chest pain, No orthopnea, No PND, No edema, No claudication, No palpitations, No problem reported Abdomen: No pain, No nausea, No vomiting, No diarrhea, No constipation, No GI bleeding, No problem reported Musculoskeletal: No joint pain, No muscle pain, No swelling, No calf pain, No problem reported Genitourinary - Female: + vaginal bleeding (increased spotting, no clots), No dysuria, No urinary frequency, No urinary urgency, No urinary incontinence, No urinary retention, No hematuria Neurologic: No memory loss, No paralysis, No weakness, No numbness/tingling , No vertigo, No balance problems, No problem reported Psychiatric: No depression symptoms, No anhedonism, No anxiety, No insomnia , No substance abuse, No problem reported Endocrine: No fatigue, No excessive thirst, No excessive urination, No problem reported Hematologic / Lymphatic: No abnormal bleeding/bruising, No clotting problems , No swollen lymph nodes, No night sweats, No problem reported Integumentary: No rash, No itch, No new/changing skin lesions, No color change, No bleeding, No problem reported Physical Exam: General Appearance: WD/WN, no apparent distress Eyes: normal inspection, EOMI, sclerae normal ENT: normal ENT inspection, hearing grossly normal, pharynx normal Neck: supple, no adenopathy, no JVD, trachea midline Respiratory/Chest: chest non-tender, lungs clear, normal breath sounds, no respiratory distress, no accessory muscle use Cardiovascular: regular rate, rhythm, no edema, no gallop, no JVD, no murmur , normal peripheral pulses Abdomen / GI: normal bowel sounds, non tender, soft, no organomegaly, no pulsatile mass Extremities: normal inspection, no calf tenderness, normal capillary refill , no pedal edema, normal range of motion, pelvis stable Neurologic/Psychiatric: 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, no motor/sensory deficits , alert, normal mood/affect, normal reflexes, oriented x 3 Skin: normal color, warm/dry, no rash Hospital Course 76 yo female with submassive, provoked bilateral PE and a left leg DVT - Submassive, bilateral PE, provoked from recent gynecologic surgery earlier this month heparin drip initially, changed to Xarelto 15mg BID the evening of 05/13 intermittent pleuritic chest pain, relieved with Motrin, refused narcotics no hypoxia will d/c home on Xarelto 15mg BID x 21 days, then 20mg daily will need approximately 6 months of treatment since she has bilateral PE follow up with PCP in one week - Left leg DVT, peroneal vein: treat with Xarelto as above - Recent rectocele repair: was treated for UTI with Bactrim, completed course on 05/13 some mild increase in bleeding, not surprising on Xarelto instructed her to call Dr. Kaplan immediately if bleeding increases further or any clots d/c to home Total Time Spent: Greater than 30 minutes This includes examination of the patient, discharge planning, medication reconciliation, and communication with other providers. Discharge Instructions Please refer to the electronic Patient Visit Report (Discharge Instructions) for additional information. Follow-Up Dr. Moya in one week Dr. Kaplan at the end of May as previously scheduled Additional Copies To Karlos Moya M.D.; Raul Kaplan M.D.
--- NOTE | 2017-05-18 10:36 | EDITING REQUIRED CODING QUERY ---
CODING QUERY To promote full compliance with coding requirements relating to patient care, provider participation is requested in all cases of scheduling representative uncertainty. Please assist us with the question(s) below: Coding Question(s): Please clarify below, in your clinical opinion, regarding of provoked bilateral PE and a left leg DVT and Submassive, bilateral PE, provoked from recent gynecologic surgery earlier this month. ( x ) PE and DVT are likely complications of the recent surgery ( ) PE and DVT are not likely complications of the recent surgery Physician's Response(s): Thank you Mary Shaikh Principal Diagnosis: "_that condition established after study, to be chiefly responsible for occasioning the admission of the patient to the hospital for care." Co-Existing Principal Diagnosis: "_when two or more diagnoses equally meet the criteria for principal diagnosis as determined by the circumstances of admission, diagnostic work up, and/or therapy provided, and the Alphabetic Index, Tabular List, or another coding guideline does not provide sequencing direction, any one of the diagnoses may be sequenced first." "When the physician has documented what appears to be a current diagnosis in the body of the record, but has not included the diagnosis in the final diagnostic statement, the physician should be asked whether the diagnosis should be added." ([facility] 2 QTR90. p3-4)
--- NOTE | 2017-05-18 10:39 | EDITING REQUIRED CODING QUERY ---
PRESENT ON ADMISSION QUERY To promote full compliance with coding requirements relating to pateint care, physician participation is requested in all cases of [employer] uncertainty. Please assist us with the question(s) below: Please place an X within the parenthesis (x). The following diagnosis(es) listed in this patient's medical record require physician assistance to determine if they were present on admission (POA) or not. Please advise for each diagnosis whether it was present on admission, not present on admission, or if it was clinically undetermined. 1. Acute hypoxic respiratory failure (documented only at the top area of the Discharge Summary). (x ) Present On Admission ( ) Not Present On Admission ( ) Clinically Undetermined ( ) No Acute Hypoxic Respiratory was present - this is an error Thank you Mary Shaikh *Definition of the present on admission (POA)-Present on admission is defined as present at the time the order for inpatient admission occurs. Conditions that develop during an outpatient encounter prior to a written order for inpatient admission (including emergency department, observation, or outpatient surgery) are considered present on admission.
== END 2017-05-14 12:08 | disposition home or self-care (01) | DRG 299 ==
LOC: EDBD 03:49 → C.EDA 03:57 → C.2T 06:25 → EDBEDREQ 06:29 → ENRESERV 06:41
PROVIDERS: ADMIT Hospitalist; ATTEND Internal Medicine
DX: T81.718A Complication of other artery following a procedure, not elsewhere classified, initial encounter (principal); J96.01 Acute respiratory failure with hypoxia; I82.492 Acute embolism and thrombosis of other specified deep vein of left lower extremity; T81.72XA Complication of vein following a procedure, not elsewhere classified, initial encounter; I26.99 Other pulmonary embolism without acute cor pulmonale; E78.5 Hyperlipidemia, unspecified; H40.9 Unspecified glaucoma; Z51.81 Encounter for therapeutic drug level monitoring; Z79.899 Other long term (current) drug therapy; Z98.890 Other specified postprocedural states; Z87.440 Personal history of urinary (tract) infections; Z83.3 Family history of diabetes mellitus; Z84.1 Family history of disorders of kidney and ureter; Z82.49 Family history of ischemic heart disease and other diseases of the circulatory system; Z82.3 Family history of stroke; Z80.1 Family history of malignant neoplasm of trachea, bronchus and lung; Z80.51 Family history of malignant neoplasm of kidney; Y83.8 Other surgical procedures as the cause of abnormal reaction of the patient, or of later complication, without mention of misadventure at the time of the procedure

== ENCOUNTER → 2017-08-05 | Outpatient (CLI) | payer OTHER ==
[~2017-08-05] MED LIST changes: -HYDROCODONE/ACETAMOPHEN 5/325MG TAB PO PRN; -MoRPHine SULFATE 2 MG/ML CARP IV PRN; +XRL15 PO
--- NOTE | 2017-08-08 12:41 | MAMMOGRAPHY REPORT ---
BILATERAL DIGITAL SCREENING MAMMOGRAM TOMOSYNTHESIS WITH CAD: 08/05/2017 CLINICAL HISTORY: Routine screening. Patient has no complaints. TECHNIQUE: Breast tomosynthesis in addition to standard 2D mammography was performed. Current study was also evaluated with a Computer Aided Detection (CAD) system. COMPARISON: Comparison is made to exams dated: 07/30/2016 mammogram - [facility], mammogram, 07/19/2014 mammogram, 07/18/2013 mammogram, 07/17/2012 mammogram, and 01/20/2012 mammogra m - [facility]. BREAST COMPOSITION: There are scattered areas of fibroglandular density in both breasts. FINDINGS: No suspicious masses, calcifications, or areas of architectural distortion are noted in ei ther breast. There has been no significant interval change compared to prior exams. IMPRESSION: ACR BI-RADS CATEGORY 1: NEGATIVE There is no mammographic evidence of malignancy. A 1 year screening mammogram is recommended. The pa tient will receive written notification of the results. Approximately 10% of breast cancers are not detected with mammography. A negative mammographic report should not delay biopsy if a clinically suggestive mass is present. Marta Robles M.D. /:08/05/2017 12:38:20 Knitting Tester: Barbara JON(Franky)(M), [facility] letter sent: Normal 1/2 BI-RADS Code: ACR BI-RADS Category 1: Negative
== END | disposition home or self-care (01) ==
LOC: C.MAMM 09:51
PROVIDERS: ATTEND Internal Medicine Geriatric Medicine
DX: Z12.31 Encounter for screening mammogram for malignant neoplasm of breast (principal)

== ENCOUNTER → 2017-09-13 | Outpatient (CLI) | payer OTHER ==
[2017-09-13 16:56] LABS: BASO % 0.5 %; BASO ABS # 0.03 K/uL (0-0.2); EOS % 4.4 %; EOS ABS # 0.26 K/uL (0-0.5); HEMATOCRIT 40.8 % (37-47); HEMOGLOBIN 13.6 g/dL (12.0-16.0); IG# 0.01 K/uL (0.00-0.02); LYMPH % 47.2 %; LYMPH ABS # 2.79 K/uL (1.2-3.4); MEAN CELL VOLUME 84.5 fL (80-100); MEAN CORPUSCULAR HEMOGLOBIN 28.2 pg (25-34); MEAN CORPUSCULAR HGB CONC 33.3 g/dl (32-36); MEAN PLATELET VOLUME 10.8 fL (7.4-10.4); MONO % 6.4 %; MONO ABS # 0.38 K/uL (0.11-0.59); NEUT % 41.3 %; NEUT ABS # 2.44 K/uL (1.4-6.5); PLATELET COUNT 234 K/uL (130-400); RED CELL DISTRIBUTION WIDTH CV 13.6 % (11.5-14.5); RED CELL DISTRIBUTION WIDTH SD 41.7 fL (36.4-46.3); WHITE BLOOD COUNT 5.91 K/uL (4.8-10.8)
[2017-09-13 17:05] LABS: ALT/SGPT 21 U/L (12-78); AST/SGOT 19 U/L (15-37); BLOOD UREA NITROGEN 17 mg/dl (7-18); CALCIUM 9.5 mg/dl (8.5-10.1); CARBON DIOXIDE 28 mmol/L (21-32); CREATININE 0.85 mg/dl (0.60-1.20); GLUCOSE 86 mg/dl (70-99); POTASSIUM 4.1 mmol/L (3.5-5.1); SODIUM 140 mmol/L (136-145)
[2017-09-13 17:08] LABS: ALKALINE PHOSPHATASE 61 U/L (45-117); TOTAL PROTEIN 7.4 gm/dl (6.4-8.2)
[2017-09-14 06:15] LABS: HEMOGLOBIN A1C 6.1 % (4.5-5.6)
== END | disposition home or self-care (01) ==
LOC: C.LABBC 12:18
PROVIDERS: ATTEND Physician Assistant Medical
DX: R73.9 Hyperglycemia, unspecified (principal); I26.99 Other pulmonary embolism without acute cor pulmonale; I82.409 Acute embolism and thrombosis of unspecified deep veins of unspecified lower extremity; E78.5 Hyperlipidemia, unspecified